=== PATIENT | female | born 1975 | race Caucasian/White ===

== ENCOUNTER → 2017-05-20 15:02 | Outpatient (CLI) | payer MEDICAID, SELFPAY ==
[2017-05-20 16:24] LABS: Hematocrit 38.8 % (37-47); Hemoglobin 12.5 g/dl (12.0-15.0); Mean Corp Hgb Conc 32.2 g/gl (32-36); Mean Corpuscular Hgb 26.7 pg (27.0-32.0); Mean Corpuscular Volume 82.9 fL (81-99); Mean Platelet Vol. 9.9 fl (6.2-12.0); Platelet Count 329 K/mm3 (150-450); RBC Distribution Width CV 14.2 % (11.6-14.6); Red Blood Count 4.68 M/mm3 (4.2-5.4); White Blood Count 11.4 K/mm3 (4.4-11.0)
[2017-05-20 16:35] LABS: Scan Indicated on CBC? Y/N NO
[2017-05-20 16:42] LABS: ALB/GLOB Ratio 0.7 RATIO (0.9-2.4); AST(SGOT) 15 U/L (15-37); Alanine Aminotransfer ALT/SGPT 40 U/L (13-56); Albumin, Serum 3.5 g/dL (3.2-5.0); Alkaline Phosphatase 113 U/L (45-117); Anion Gap 10 (5-15); BUN 13 mg/dL (7-18); Calcium,Total 8.3 mg/dL (8.5-10.1); Chloride 106 mmol/L (98-107); Creatinine, Serum 0.87 mg/dL (0.55-1.02); EST Glomerular Filtration Rate 77 mL/min (>60); Est Glom Filt Rate - Afr Amer 93 mL/min (>60); Follicle Stimulating Hormone 1.8 mIU/mL; Globulin 4.7 g/dL (2.2-4.2); Glucose 88 mg/dL (74-106); Potassium 3.4 mmol/L (3.5-5.1); Protein, Total 8.2 g/dL (6.4-8.2); Sodium Level 139 mmol/L (136-145)
[2017-05-21 08:54] LABS: Vitamin D,25 Hydroxy 19.6 ng/mL (29.95-100.01)
== END ==
PROVIDERS: Visit Provider Obstetrics & Gynecology
DX: N92.0 Excessive and frequent menstruation with regular cycle (principal)
CPT/HCPCS: 36415; 80053; 82306; 83001; 85027

== ENCOUNTER → 2017-05-27 15:53 | Outpatient (CLI) | payer MEDICAID, SELFPAY ==
[2017-06-01 06:20] LABS: HPV Reflexed? NOT INDICATED
== END ==
PROVIDERS: Visit Provider Obstetrics & Gynecology
DX: Z12.4 Encounter for screening for malignant neoplasm of cervix (principal); Z12.72 Encounter for screening for malignant neoplasm of vagina
CPT/HCPCS: 88175; G0145

== ENCOUNTER → 2017-06-20 11:56 | Outpatient (CLI) | payer MEDICAID, SELFPAY ==
--- NOTE | 2017-06-20 11:58 | BI_ITS ---
MAMMOGRAPHY - BILATERAL SCREENING REASON FOR EXAM: Female, 42 years old. Routine annual screening examination. PERTINENT HISTORY: Non-contributory. TECHNIQUE: Digital bilateral breast jason (3D mammographic acquisition) in the CC and MLO projections. 2-D mediolateral oblique (MLO) and craniocaudad (CC) views of both breasts were obtained. CAD: Full Field Digital Mammography with Computer Added Detection was performed. COMPARISON: No comparison mammograms available at this time. If any prior films become available, an addendum to this report can be generated. FINDINGS: Breast Composition: The breasts are heterogeneously dense, which may obscure small masses. There are no dominant masses or suspicious calcifications. Multiple benign appearing bilateral axillary lymph nodes. No other significant abnormalities are identified. BI/SCREENING MAMM (CAD), BILAT IMPRESSION: Negative screening mammogram. Yearly followup mammogram recommended. (A) ASSESSMENT CATEGORY: BIRADS Category 2: Benign. A letter regarding these results will be sent to the patient by the facility within 30 days. Approximately 10% of breast cancers are not detected by mammography. A normal mammogram should not delay biopsy of a clinically suspicious abnormality. [id number] Electronically Signed: Natanael Morris MD at 13:04 EDT Tel [phone], Service support ,
== END ==
PROVIDERS: Visit Provider Obstetrics & Gynecology
DX: Z12.31 Encounter for screening mammogram for malignant neoplasm of breast (principal)
CPT/HCPCS: 77063; 77067

== ENCOUNTER 2017-07-06 09:48 | Emergency (ER) | payer MEDICAID, SELFPAY ==
[2017-07-06 09:49] VITALS: BP 145/83; PULSE 86; RESP 16; TEMP 36.3; O2SAT 98; BMI 35.8
--- NOTE | 2017-07-06 10:01 | CT_ITS ---
STUDY: CT ABDOMEN AND PELVIS WITHOUT CONTRAST REASON FOR EXAM: Female, 42 years old. History of stent placement. Pain and discomfort. RADIATION DOSAGE (If Supplied By Facility): CTDIvol = ( 21.99 ) mGy, DLP = ( 1120.53 ) mGycm TECHNIQUE: Transaxial images were obtained from the dome of the diaphragm to the symphysis pubis without oral contrast, and without intravenous contrast. Sagittal and coronal images were reconstructed. Individualized dose optimization techniques were used for this CT. COMPARISON: None. FINDINGS: The visualized portions of the lung bases demonstrate mild atelectatic changes. The visualized portions of the heart are within normal limits. The liver is mildly enlarged. There is diffuse fatty infiltration of the liver. The patient is status post cholecystectomy. Normal spleen. Normal pancreas. Normal bilateral adrenal glands. There are few small nonobstructing stones in the upper pole of the right kidney measuring about 2 mm. There is an 11 x 9 mm nonobstructing stone in the lower pole of the left kidney. There is a left-sided double J stent catheter with the proximal tip in the left renal pelvis and the distal tip in the bladder. There is no demonstrated definite ureteral stone. There is mild stranding along the course of the left ureter. There is mild left hydronephrosis. Normal visualized stomach. Normal small intestine. There is fecal retention. The descending colon is suboptimally distended. There is no evidence of acute diverticulitis. The appendix is visualized and appears normal. Normal abdominal aorta. Normal inferior vena cava. Normal retroperitoneum. The urinary bladder is not well-distended. There is a very small umbilical hernia containing fat. Normal osseous structures. CT/Abdomen/Pelvis without Cont IMPRESSION: Hepatomegaly. Fatty infiltration of the liver. Bilateral nonobstructing renal stones larger on the left side. Left double J stent catheter in place. Mild left hydronephrosis and stranding along the course of the left ureter. No definite ureteral stone is seen. Mild left hydronephrosis. Otherwise no demonstrated acute process. Electronically Signed: John Funes MD at 11:46 EDT Tel , Service support ,
[2017-07-06 10:09] LABS: Bacteria 0 SEEN /hpf (None Seen); Mucous, Urine 0 SEEN /hpf (<or=2+)
[2017-07-06 10:17] LABS: Color, Urine Brown (Yellow); Glucose, Dipstick Normal (Normal); Ketone-Dipstick Negative (Negative); Leukocyte Esterase-Dipstick 100 /ul (Negative); Nitrite-Dipstick Positive (Negative); Occult Blood-Urine 250 /ul (Negative); Protein-Dipstick 500 mg/dl (Negative); Specific Gravity, Urine 1.025 (1.002-1.030); Urine Bilirubin Dipstick Negative (Negative); Urine Clarity Cloudy (Clear); Urine Urobilinogen Normal (Normal)
[2017-07-06 10:17] LABS: Absolute Lymphocyte Count 3.09 X10^3/ul (0.83-4.51); Absolute Neutrophil Count 6.8 X10^3/uL (2.0-7.7); Basophil# 0.04 X10^3/uL; Basophil% 0.3 % (0-1); Eosinophil# 1.01 X10^3/uL; Eosinophils% 8.6 % (0-5); Hematocrit 40.2 % (37-47); Hemoglobin 13.2 g/dl (12.0-15.0); Lymphocyte # 3.09 X10^3/ul (4.0); Lymphocyte % 26.3 % (19-41); Mean Corp Hgb Conc 32.8 g/gl (32-36); Mean Corpuscular Volume 82.2 fL (81-99); Mean Platelet Vol. 9.4 fl (6.2-12.0); Monocyte# 0.76 X10^3/uL; Monocyte% 6.5 % (0-10); Neutrophil # 6.81 X10^3/uL (2.7-7.7); Neutrophil % 58.1 % (47-70); Platelet Count 402 K/mm3 (150-450); RBC Distribution Width CV 14.3 % (11.6-14.6); RBC Distribution Width SD 42.8 fl (35.1-43.9); Red Blood Count 4.89 M/mm3 (4.2-5.4); White Blood Count 11.7 K/mm3 (4.4-11.0)
[2017-07-06 10:18] LABS: POSITIVE COUNT NO; POSITIVE DIFFERENTIAL NO; POSITIVE MORPHOLOGY NO
[2017-07-06] MEDS: Ketorolac 30 MG/ML Syringe IV (10:19)
[2017-07-06] MEDS: 0.9% Normal Saline 1,000 ML 125 ML IV (10:19)
[2017-07-06] MEDS: Ondansetron 4 MG/2 ML Vial IV (10:20)
[2017-07-06] MEDS: HYDROmorphone 1 MG/ML Syringe IV ×2 (10:21→11:31)
[2017-07-06 10:31] LABS: Red Blood Cells-Urine > 100 SEEN /hpf (0-5); Squamous Epithelial Cells - UA 0-5 SEEN /hpf (5-10); White Blood Cells 10-25 SEEN /hpf (0-5)
[2017-07-06 10:32] LABS: Anion Gap 8 (5-15); BUN 15 mg/dL (7-18); BUN/Creat Ratio 15.2 RATIO (10-20); Calcium,Total 9.3 mg/dL (8.5-10.1); Chloride 108 mmol/L (98-107); Creatinine, Serum 0.98 mg/dL (0.55-1.02); EST Glomerular Filtration Rate 66 mL/min (>60); Est Glom Filt Rate - Afr Amer 80 mL/min (>60); Estimated Creatinine Clearance 65.89 ml/min; Glucose 97 mg/dL (74-106); Potassium 4.1 mmol/L (3.5-5.1); Sodium Level 140 mmol/L (136-145)
[2017-07-06] MEDS: Ceftriaxone 1 GM/50 mL Premix x1 IV (11:31)
[2017-07-06 11:33] VITALS: BP 110/57; PULSE 66; RESP 18; O2SAT 98
--- NOTE | 2017-07-06 12:05 | ED.VISSUMM ---
- ER Visit Summary Date of Service: 07/06/17 Chief Complaint: [Left flank pain] History of Present Illness: The patient is a 42 F [presents to the emergency department with pain in her left flank that started about a week ago. Patient was seen at [facility] by her urologist and had a stent placed to the left kidney for a renal stone and measured about 11 mm. Patient was sent home with Tylenol with codeine for pain as well as Cipro. Patient continues to have severe pain. Patient's had some nausea but no vomiting. Patient had no fever. Patient states that she cannot tolerate the pain any longer.] Physical Examination: [HEENT-PERRLA, EOMI. Cranial nerves II through XII grossly intact. TMs clear. Mucous membranes moist. No adenopathy. Cardiovascular-regular rate and rhythm without murmur or ectopy Lungs-clear to auscultation, chest wall stable without crepitus or subcu emphysema Abdomen-normoactive bowel sounds, soft. Mild diffuse tenderness palpation over the left abdomen without rebound, rigidity, or perineal signs. Patient has CVA tenderness on the left. Extremities-intact ?4, normal range of motion, normal pulses, atraumatic] Test Results: [CBC with differential showed a white count of 11.7, hemoglobin 13, hematocrit 40, platelets 402. Chemistries unremarkable. Urinalysis was positive for nitrites as well as 10-25 WBCs and greater than [address] flank showed 11 mm x 9 mm left renal stone with some stranding along the course of the left ureter and some hydronephrosis.] Emergency Department Course and Treatment: [Patient was medicated with Dilaudid and Zofran. Patient had to be remedicated a second time for pain.] Treatment Plan: [Case was discussed with [facility] and patient will be transferred to their facility where patient initially began her treatment and where her urologist practices. We do not have urology coverage at [place] today.] Disposition: [Transfer to [facility] in [place].] Impression: [Intractable left flank pain Left renal stone UTI] This note was generated with [employer] dictation software. It may contain incorrect words, spelling, and punctuation that were not noted in review of the chart prior to signing ED Disposition - Plan for ED Patient: Chief Complaint: Complaint Referrals: Care Physician,No Primary [Primary Care Provider] -
[2017-07-06 12:07] VITALS: BP 112/61; PULSE 70; RESP 18; O2SAT 97
--- NOTE | 2017-07-06 12:08 | ED.DCSUM_ITS ---
- ER Visit Summary Date of Service: 07/06/17 Chief Complaint: [Left flank pain] History of Present Illness: The patient is a 42 F [presents to the emergency department with pain in her left flank that started about a week ago. Patient was seen at [facility] by her urologist and had a stent placed to the left kidney for a renal stone and measured about 11 mm. Patient was sent home with Tylenol with codeine for pain as well as Cipro. Patient continues to have severe pain. Patient's had some nausea but no vomiting. Patient had no fever. Patient states that she cannot tolerate the pain any longer.] Physical Examination: [HEENT-PERRLA, EOMI. Cranial nerves II through XII grossly intact. TMs clear. Mucous membranes moist. No adenopathy. Cardiovascular-regular rate and rhythm without murmur or ectopy Lungs-clear to auscultation, chest wall stable without crepitus or subcu emphysema Abdomen-normoactive bowel sounds, soft. Mild diffuse tenderness palpation over the left abdomen without rebound, rigidity, or perineal signs. Patient has CVA tenderness on the left. Extremities-intact ?4, normal range of motion, normal pulses, atraumatic] Test Results: [CBC with differential showed a white count of 11.7, hemoglobin 13 , hematocrit 40, platelets 402. Chemistries unremarkable. Urinalysis was positive for nitrites as well as 10-25 WBCs and greater than [address] flank showed 11 mm x 9 mm left renal stone with some stranding along the course of the left ureter and some hydronephrosis.] Emergency Department Course and Treatment: [Patient was medicated with Dilaudid and Zofran. Patient had to be remedicated a second time for pain.] Treatment Plan: [Case was discussed with [facility] and patient will be transferred to their facility where patient initially began her treatment and where her urologist practices. We do not have urology coverage at [place] today.] Disposition: [Transfer to [facility] in [place].] Impression: [Intractable left flank pain Left renal stone UTI] This note was generated with [employer] dictation software. It may contain incorrect words, spelling, and punctuation that were not noted in review of the chart prior to signing ED Disposition - Plan for ED Patient: Chief Complaint: Complaint Referrals: Care Physician,No Primary [Primary Care Provider] -
== END 2017-07-06 13:23 | disposition short-term general hospital (02) ==
PROVIDERS: Emergency Provider Emergency Medicine
DX: N13.2 Hydronephrosis with renal and ureteral calculous obstruction (principal); N39.0 Urinary tract infection, site not specified; Z79.899 Other long term (current) drug therapy; Z87.442 Personal history of urinary calculi
CPT/HCPCS: 74176; 80048; 81001; 85025; 87086; 87088; 96361; 96365; 96375; 96376; 99284

== ENCOUNTER 2017-08-20 05:51 | Day surgery (SDC) | payer MEDICAID, SELFPAY ==
[2017-08-15 11:37] LABS: Hematocrit 38.2 % (37-47); Hemoglobin 12.5 g/dl (12.0-15.0); Mean Corp Hgb Conc 32.7 g/gl (32-36); Mean Corpuscular Hgb 27.1 pg (27.0-32.0); Mean Corpuscular Volume 82.9 fL (81-99); Mean Platelet Vol. 9.9 fl (6.2-12.0); Platelet Count 322 K/mm3 (150-450); RBC Distribution Width CV 14.5 % (11.6-14.6); RBC Distribution Width SD 43.5 fl (35.1-43.9); Red Blood Count 4.61 M/mm3 (4.2-5.4); White Blood Count 8.5 K/mm3 (4.4-11.0)
[2017-08-15 11:40] LABS: Scan Indicated on CBC? Y/N NO
[2017-08-15 11:49] LABS: Pregnancy, Serum, hCG Quali. NEGATIVE Negative (0-9 Nonpreg)
[2017-08-15 11:56] LABS: International Normalized Ratio 1.1; Prothrombin Time (Protime)PT. 14.1 SECONDS (11.7-14.9)
[2017-08-15 11:57] LABS: Partial Thromboplast Time 26.7 Seconds (24.1-36.2)
--- NOTE | 2017-08-20 | EMB_PTH ---
PATIENT: LOUISE JAMA LOC: [facility] U#:[id number] AGE/SX: 42/F ROOM: RE08/20/[address]: Dr. Yefri Kilgore MD : 1975 BED: DIS: 08/20/2017 SPEC #: [id number] RECD: 08/20/17 11:53 STATUS: PETER MIRIAN #: [id number] MACHELLE: 08/20/17 00:[address]: Yefri Kilgore DEPT: SURGICAL PATHOLOGY RECD BY: Stuart Alberto ENTERED: 08/21/17 11:54 SP TYPE: ENDOM BX/C AIDA DR: No Primary Care Phys Tissues: Endometrium, NOS Procedures: Surgery Specimen Level IV HEADER OPERATION: Hysteroscopy, D & C, Radha PRE-OP DIAGNOSIS: Menorrhagia TISSUE SUBMITTED: Endometrial curettings MICROSCOPIC DIAGNOSIS Endometrial curettings: Scant fragments of secretory endometrium. A few fragments of endometrium suggestive of polyp with inactive endometrium and cystic changes. Fragments of benign endocervical mucosa. See comment. NICHOLAS:sherman 08/22/17 COMMENT The specimen predominantly consists of endocervical mucosa. Clinical correlation and appropriate follow up are necessary. MICROSCOPIC DESCRIPTION Slides are reviewed. GROSS DESCRIPTION Received in fixative is one container labeled with the patient's name and designated endometrial curettings. The specimen consists of multiple irregular fragments of pink hemorrhagic soft tissue that in aggregate measure 3 x 2.5 x 0.3 cm. The specimen is totally submitted in one cassette. / NICHOLAS:sherman 08/20/17 TC:5 CPT: 88196
--- NOTE | 2017-08-20 05:51 | DT_ITS ---
This patient was seen during an EMR downtime August 18, 2017 - August 25, 2017. This patient may have a combination of paper and electronic documentation or all paper documentation. All documentation is viewable within the e-chart portion of [facility] for each patient visit.
[2017-08-23 11:12] LABS: Internal QC Validated? YES +Cl - CLEAR BKGD; Pregnancy, Urine Negative Negative
== END 2017-08-20 09:30 | disposition home or self-care (01) ==
LOC: SDC 08-21 11:17
PROVIDERS: Visit Provider Obstetrics & Gynecology
PROC: 0U5B8ZZ Destruction of Endometrium, Via Natural or Artificial Opening Endoscopic (ICD-10-PCS; CPT 58558; principal; 2017-08-20 07:15)
DX: N92.0 Excessive and frequent menstruation with regular cycle (principal); N94.6 Dysmenorrhea, unspecified; Z87.442 Personal history of urinary calculi
CPT/HCPCS: 00952; 58558; 58563; 36415; 81025; 84703; 85027; 85610; 85730; 86850; 86900; 88305; J7120

== ENCOUNTER 2017-11-28 19:34 | Observation (INO) | payer MEDICAID, SELFPAY ==
[2017-11-28 19:35] VITALS: BP 131/98; PULSE 83; RESP 22; TEMP 36.9; O2SAT 100; BMI 36.6
--- NOTE | 2017-11-28 20:06 | CT_ITS ---
STUDY: CT ABDOMEN AND PELVIS WITHOUT CONTRAST REASON FOR EXAM: Female, 42 years old. Left flank pain RADIATION DOSAGE (If Supplied By Facility): CTDIvol = ( 21.19 ) mGy, DLP = ( 1032.39 ) mGycm TECHNIQUE: Transaxial images were obtained from the dome of the diaphragm to the symphysis pubis without oral contrast, and without intravenous contrast. Sagittal and coronal images were reconstructed. Individualized dose optimization techniques were used for this CT. COMPARISON: Prior study of 07/06/2017 FINDINGS: There are mild fibrotic and/or atelectatic changes of the right middle lobe, stable in the interval. The visualized portions of the heart are within normal limits. There is decreased attenuation of the liver consistent with steatosis. There is mild hepatomegaly. There are surgical clips in the gallbladder fossa consistent with a prior cholecystectomy. Normal spleen. Normal pancreas. Normal bilateral adrenal glands. There is a nonobstructing 3 mm calculus of the right kidney. There is a nonobstructing calculus of the left kidney measuring 5 mm. There is a mild left hydronephrosis. There is an obstructing calculus in the proximal left ureter at the level of the UPJ measuring 5 mm. Normal visualized stomach. Normal small intestine. There is mild diffuse colonic diverticulosis with no evidence of associated diverticulitis. The appendix is visualized and appears normal. Normal abdominal aorta. Normal inferior vena cava. Normal retroperitoneum. Normal urinary bladder. The uterus and adnexal structures are unremarkable. There is a small umbilical hernia containing fat. Normal osseous structures. CT/Abdomen/Pelvis without Cont IMPRESSION: 1. Obstructing calculus of the proximal left ureter at the level of the UPJ measuring 5 mm. There is a mild left hydronephrosis. 2. Additional nonobstructing renal calculi are seen bilaterally. 3. Mild hepatomegaly. Hepatic steatosis. 4. Status post cholecystectomy. 5. Mild colonic diverticulosis with no evidence of associated diverticulitis. 6. Small fat-containing umbilical hernia. Electronically Signed: Oskar Saini MD at 20:48 EDT , Service support ,
--- NOTE | 2017-11-28 20:09 | ED.DCSUM_ITS ---
- ER Visit Summary Date of Service: 11/28/17 Chief Complaint: Left flank pain History of Present Illness: The patient is a 42 F presenting with left flank pain. She states it started suddenly 2 hours ago. She has a history of previous kidney stones and states this feels similar. She denies fever. Her urologist is Dr. Lubin. Denies other complaints. Physical Examination: Vitals are stable. Patient is afebrile. Alert no acute distress. HEENT exam is unremarkable. Neck is supple. Lungs are clear and equal bilaterally. Heart is regular rate and rhythm. Abdomen is soft nontender nondistended. Back: Left CVA tenderness Extremities are unremarkable. Skin is warm and dry. Remainder of exam is unremarkable. Emergency Department Course and Treatment: Patient given morphine, Zofran, Toradol IV. Urinalysis shows 5-10 white cells, 25-50 red blood cells. She continues to have pain and was given Dilaudid, Phenergan IV. CT flank shows obstructing calculus of the proximal left ureter at the level of the UPJ measuring 5 mm. There is a mild left hydronephrosis. Additional nonobstructing renal calculi are seen bilaterally. Patient's pain has improved but she states she is still having significant pain. She does not feel that she can go home. She has been seen at [place] in the past for similar complaints. She prefers to stay at [facility]. Discussed with Dr. Moss for admission. Disposition: Admission Impression: Urolithiasis This note was generated with [employer] dictation software. It may contain incorrect words, spelling, and punctuation that were not noted in review of the chart prior to signing ED Disposition - Plan for ED Patient: Chief Complaint: Flank Pain Referrals: Care Physician,No Primary [Primary Care Provider] -
[2017-11-28] MEDS: Ketorolac 30 MG/ML Syringe IV (20:17)
[2017-11-28] MEDS: Ondansetron 4 MG/2 ML Vial IV (20:17)
[2017-11-28] MEDS: Morphine 4 MG/ML Syringe IV (20:17)
[2017-11-28 20:51] LABS: Squamous Epithelial Cells - UA 0 SEEN /hpf (5-10)
[2017-11-28 20:59] LABS: Color, Urine Yellow (Yellow); Glucose, Dipstick Normal (Normal); Ketone-Dipstick 5 mg/dl (Negative); Leukocyte Esterase-Dipstick 100 /ul (Negative); Nitrite-Dipstick Negative (Negative); Occult Blood-Urine 250 /ul (Negative); Protein-Dipstick 30 mg/dl (Negative); Specific Gravity, Urine 1.025 (1.002-1.030); Urine Bilirubin Dipstick Negative (Negative); Urine Clarity Sl. Cloudy (Clear); Urine Urobilinogen Normal (Normal)
[2017-11-28 21:12] LABS: Bacteria RARE /hpf (None Seen); Mucous, Urine 1+ /hpf (<or=2+); Red Blood Cells-Urine 25-50 SEEN /hpf (0-5); White Blood Cells 5-10 SEEN /hpf (0-5)
[2017-11-28] MEDS: proMETHazine 25 MG/ML Syringe 6.25 MG IV (21:59)
[2017-11-28 22:00] VITALS: BP 118/76; PULSE 81; RESP 19; O2SAT 97
[2017-11-28] MEDS: HYDROmorphone 1 MG/ML Syringe IV (22:00)
[2017-11-28 22:54] LABS: Absolute Lymphocyte Count 4.38 X10^3/ul (0.83-4.51); Absolute Neutrophil Count 7.3 X10^3/uL (2.0-7.7); Basophil# 0.03 X10^3/uL; Basophil% 0.2 % (0-1); Eosinophil# 0.56 X10^3/uL; Eosinophils% 4.2 % (0-5); Hematocrit 38.8 % (37-47); Hemoglobin 12.4 g/dl (12.0-15.0); Lymphocyte # 4.38 X10^3/ul (4.0); Lymphocyte % 32.9 % (19-41); Mean Corpuscular Hgb 26.5 pg (27.0-32.0); Mean Corpuscular Volume 82.9 fL (81-99); Mean Platelet Vol. 9.6 fl (6.2-12.0); Monocyte# 1.04 X10^3/uL; Monocyte% 7.8 % (0-10); Neutrophil % 54.8 % (47-70); POSITIVE COUNT NO; POSITIVE DIFFERENTIAL NO; POSITIVE MORPHOLOGY NO; Platelet Count 346 K/mm3 (150-450); RBC Distribution Width CV 14.5 % (11.6-14.6); RBC Distribution Width SD 43.9 fl (35.1-43.9); Red Blood Count 4.68 M/mm3 (4.2-5.4); White Blood Count 13.3 K/mm3 (4.4-11.0)
[2017-11-28 23:04] LABS: Anion Gap 11 (5-15); BUN 13 mg/dL (7-18); BUN/Creat Ratio 11.9 RATIO (10-20); Calcium,Total 9.3 mg/dL (8.5-10.1); Chloride 106 mmol/L (98-107); Creatinine, Serum 1.09 mg/dL (0.55-1.02); EST Glomerular Filtration Rate 59 mL/min (>60); Est Glom Filt Rate - Afr Amer 71 mL/min (>60); Estimated Creatinine Clearance 59.24 ml/min; Glucose 114 mg/dL (74-106); Potassium 3.5 mmol/L (3.5-5.1); Sodium Level 141 mmol/L (136-145)
[2017-11-29] VITALS (14 sets, daily range): BP systolic 99–156; BP diastolic 55–106; PULSE 63–97; RESP 15–18; TEMP 36.1–36.9; O2SAT 94–100; BMI 36.6
[2017-11-29] MEDS: Dext 5%-0.45% NS 1,000 ML 120 ML IV ×3 (01:39→22:12)
[2017-11-29] MEDS: Ketorolac 30 MG/ML Syringe IV (01:53)
[2017-11-29] MEDS: 0.9% NaCl Peripheral Flush Adult/Peds IV ×3 (03:12→23:55)
[2017-11-29] MEDS: Morphine 2 MG/ML Syringe IV ×5 (03:12→23:54)
[2017-11-29] MEDS: Tamsulosin HCl 0.4 MG Capsule PO (04:19)
[2017-11-29 06:23] LABS: Internal QC Validated? YES +Cl - CLEAR BKGD
[2017-11-29] MEDS: Ondansetron 4 MG/2 ML Vial IV (06:23)
[2017-11-29 06:25] LABS: Pregnancy, Urine Negative Negative
--- NOTE | 2017-11-29 09:43 | PCM.HP.BLA ---
Problem List (1) Renal calculus, left Status: Acute (2) Back pain Status: Acute History and Physical Date of Admission: 11/28/17 The patient is a 42-year-old female with a past medical history significant for nephrolithiasis. She has had cystoscopy, ureteral stent insertion and shockwave lithotripsy in the past. She developed nausea vomiting and acute onset left flank pain yesterday and presented to the emergency room for control of symptoms. She has had no fever, no signs of urinary tract infection. In the emergency room she was found to have a proximal left ureteral calculus. She reports that this is likely secondary to her extracorporal shockwave lithotripsy. He desires to proceed with surgical intervention but has had horrible experiences with stents in the past and would prefer surgical intervention with minimal stent time. Past medical history: Nephrolithiasis Past surgical history: Cystoscopy, ureteral stent insertion, extracorporal shockwave lithotripsy No known drug allergies No long-term medications Vital signs: Afebrile, vital signs are stable please see chart for details. Patient is alert and oriented ?3. She is in mild distress secondary to nausea, pain. She has a washcloth to her forehead. She is normocephalic, atraumatic. Mucosal membranes are dry. Neck is supple and trachea is midline. She has normal air movement and her heart rhythm is normal. Abdomen is soft nontender nondistended. There is CVA tenderness to the left side. She has normal range of motion's of her extremities and SCDs are in place. There is no Connolly catheter. Genital and rectal examinations deferred. Auditory studies reviewed there is no evidence of urinary tract infection on her UA. There is a proximal left ureteral calculus on her CT scan. Assessment and plan: 42-year-old female with acute left proximal ureteral calculus with uncontrolled pain, nausea and vomiting Proceed with surgical intervention with cystoscopy, left ureteroscopy, laser lithotripsy and left ureteral stent placement. Risks and benefits discussed including the risk of anesthesia, bleeding, infection, injury including to the ureter and kidney. The patient agrees with this plan and understands the risks.
--- NOTE | 2017-11-29 10:30 | NURSING ---
PT TO OR VIA BED.
--- NOTE | 2017-11-29 12:10 | OP.PN_ITS ---
Problem List (1) Renal calculus, left Status: Acute (2) Back pain Status: Acute Immediate Post-Op Note Date of Procedure: 11/29/17 Primary Surgeon/Physician: Zari Moss MD forensic manager: Zari Moss Pre-Operative Diagnosis: left renal calculus, left ureteral calculus Post-Operative Diagnosis: same Surgery/Procedure Performed:: cystoscopy, left ureteroscopy, laser lithotripsy, left ureteral stent insertion. Description of Surgical Findings:: as seen on CT, proximal left ureteral stone and left renal stone. laser lithotripsy into small fragments within the renal pelvis. left ureteral stent inserted with string left in place. Estimated Blood Loss: 2cc Specimen's removed: none Type of Anesthesia:: General Special Medications: ancef - Admit VTE Documentation VTE Present on Admission: Yes VTE Mechan Device Prophylaxis: SCD's VTE Pharm Prophylaxis ordered?: No Reason prophylaxis not ordered:: Treatment Not Indicated
[2017-11-30 02:19] VITALS: BP 106/66; PULSE 86; RESP 16; TEMP 36.7; O2SAT 95
[2017-11-30] MEDS: 0.9% NaCl Peripheral Flush Adult/Peds IV ×2 (06:22→11:39)
[2017-11-30] MEDS: Morphine 2 MG/ML Syringe IV (06:22)
[2017-11-30] MEDS: Dext 5%-0.45% NS 1,000 ML 120 ML IV (06:27)
[2017-11-30] MEDS: HYDROcodone Bitartrate/Apap 5/325 Tablet PO (07:53)
[2017-11-30 08:20] VITALS: BP 121/69; PULSE 97; RESP 16; TEMP 37.3; O2SAT 95
[2017-11-30] MEDS: Ketorolac 30 MG/ML Syringe IV ×2 (11:38→20:47)
--- NOTE | 2017-11-30 12:23 | PCM.PN.GU ---
Physical Exam Subjective: Sitting up in bed. Stent out this morning. Feeling better but still complaining of left flank pain increased with voiding. Having headaches from the pain meds. Would like to go home but fearful of pain at home. - Physical Exam Vital Signs Temp 99.2 F H 11/30/17 08:20 Pulse 97 11/30/17 08:20 Resp 16 11/30/17 08:20 BP 121/69 H 11/30/17 08:20 Pulse Ox 95 11/30/17 08:20 Intake & Output 11/28/17 11/29/17 11/30/17 23:59 23:59 23:59 Intake Total 2225 / 2225 2465 / 2465 Output Total 400 / 400 1050 / 1050 Balance 1825 / 1825 1415 / 1415 Weight: 96.7 kg Intake: Oral 250 / 250 360 / 360 IV fluid/meds 1974 2105 / 2105 IV #1 400 / 400 Output: Urine 400 / 400 1050 / 1050 Other: Number of Voids 3 General: Alert, Oriented x3 HEENT: Atraumatic, Normocephalic Oral: Moist Mucosa Neck: Trachea Midline Lungs: Normal air movement Abdomen: Soft, Non Tender, Non-Distended, - - left CVA tenderness to palpation Rectal: Exam deferred Extremities: No Calf Tenderness Skin: No rashes Musculoskeletal: No Muscle Wasting Neurological: Cranial nerves II-XII grossly intact, Neuro grossly intact Psych/Mental Status: Normal Affect Medical Necessity - Tobacco Use Smoking Status: Never smoker Assessment/Plan All Active Problems Renal calculus, left (Acute) Back pain (Acute) will heplock IV, change to tylenol with codeine. oral intake, ambulate if still with significant pain this evening, will recheck CT flank. if feeling better, home today with follow up in the office for further stone management.
--- NOTE | 2017-11-30 12:35 | DCINST_ITS ---
Discharge Diet: No Restrictions Discharge Activity: May not drive while taking narcotic pain medications., May Shower, May Take a Tub Bath May resume sexual activity in: No Restrictions Call your doctor if you observe: Fever of 101 or Higher, Inability to urinate, Inability to have a bowel movement, Shortness of breath, Chest pain, Calf discomfort, Uncontrolled pain Allergies/Adverse Reactions: Allergies No Known Allergies Allergy (Verified 11/29/17 00:24) Medications to take at Discharge Acetaminophen/Codeine #3 [Tylenol #3 Tablet] 2 tab PO Q4H PRN PRN 7 Days #30 tab 11/30/17 Cephalexin [Keflex] 500 mg PO Q12 3 Days #6 cap 11/30/17 Ondansetron [Zofran] 8 mg PO Q8H PRN PRN 7 Days #20 tab 11/30/17 Phenazopyridine HCl [Pyridium] 200 mg PO TID PRN PRN 7 Days #30 tab 11/30/17 The following prescriptions were given: Acetaminophen/Codeine #3 [Tylenol #3 Tablet] 2 tab PO Q4H PRN PRN 7 Days #30 tab PRN Reason: Moderate Pain (4-5/10) Ondansetron [Zofran] 8 mg PO Q8H PRN PRN 7 Days #20 tab PRN Reason: Nausea Cephalexin [Keflex] 500 mg PO Q12 3 Days #6 cap Phenazopyridine HCl [Pyridium] 200 mg PO TID PRN PRN 7 Days #30 tab PRN Reason: Bladder Spasms Primary Care Physician: Care Physician,No Primary [Primary Care Provider] - Test Results: Test results from this visit will be discussed in further detail at your follow- up appointment, if applicable. Please Follow Up With: Zari Moss MD When: 2 weeks, call for appt.
--- NOTE | 2017-11-30 12:35 | PCM.OPRPT ---
Problem List (1) Renal calculus, left Status: Acute (2) Back pain Status: Acute Report of Operation Date of Procedure: 11/29/17 Pre-Operative Diagnosis: left renal calculus, left ureteral calculus Post-Operative Diagnosis: same Surgery/Procedure Performed:: cystoscopy, left ureteroscopy, laser lithotripsy, left ureteral stent insertion. Description of Surgical Findings:: as seen on CT, proximal left ureteral stone and left renal stone. laser lithotripsy into small fragments within the renal pelvis. left ureteral stent inserted with string left in place. optical effects line up person: Zari Moss Type of Anesthesia:: General Special Medications: ancef Specimen's removed: none Estimated Blood Loss (mL): 2cc Description of Procedure: The patient is a 42-year-old female presented to the emergency room and found to have left proximal ureteral/renal calculi. She has recently undergone extracorporal shockwave lithotripsy of the stone in the left kidney. She has had significant difficulty with pain control when she has had stents in in the past. After discussing the risk benefits and alternatives she agreed to proceed with treatment of the left renal stones and string with stent that can be pulled out without cystoscopy. All risks benefits and alternatives were discussed. The patient was taken operating room placed on the operating room table. Anesthesia monitored the head neck, airway, vital signs, IV access during the case. Once anesthesia was a probably administered the patient was placed into dorsal lithotomy position was prepped and draped in usual sterile fashion. A cystourethroscopy was then performed and there were no lesions within the urinary bladder including papillary gross, ulcerations, erythema or foreign body. At this time the left ureteral orifice was intubated with a 0.035 Glidewire x2. Flexible ureteroscopy over 1 of the wires was then performed to the level of the stone which is easily identified. At this time laser lithotripsy ensued and the stone was broken into multiple pieces within the renal pelvis. The second stone was located in a separate calyx and was also fragmented into multiple small pieces with the laser. At this time an attempt was made at stone basket extraction and I was unable to grasp any of the small fragments. Using the safety wire and the cystoscope, a 6 Maori 24 cm double-J stent was inserted with good curling in the renal pelvis as well as the urinary bladder. This string was left in situ and was taped to the patient's right inner thigh. The patient was then awakened and taken to recovery room in good condition. There were no complications during this procedure. Grafts/Implants Used: 6x24 ureteral stent with string - Complications none - Admit VTE Documentation VTE Present on Admission: Yes VTE Mechan Device Prophylaxis: SCD's VTE Pharm Prophylaxis ordered?: No Reason prophylaxis not ordered:: Treatment Not Indicated
[2017-11-30 13:56] VITALS: BP 98/54; PULSE 75; RESP 16; TEMP 36.9; O2SAT 94
[2017-11-30] MEDS: Acetaminophen/Codeine #3 Tablet 2 TABLET PO ×2 (14:04→18:07)
[2017-11-30 20:37] VITALS: BP 117/65; PULSE 75; RESP 16; TEMP 36.5; O2SAT 97
[2017-12-01] MEDS: Acetaminophen/Codeine #3 Tablet 2 TABLET PO ×2 (00:20→04:52)
[2017-12-01 03:10] VITALS: BP 104/62; PULSE 63; RESP 16; TEMP 36.8; O2SAT 95
[2017-12-01 08:16] VITALS: BP 110/63; PULSE 67; RESP 18; TEMP 36.8; O2SAT 97
[2017-12-01 10:09] VITALS: PULSE 60
== END 2017-12-01 10:49 | disposition home or self-care (01) ==
LOC: ED 20:37 → MS3 11-29 01:29
PROVIDERS: Anesthesiology; Admitting Provider Urology; Emergency Provider Emergency Medicine; Visit Provider Urology
PROC: 0TJ98ZZ Inspection of Ureter, Via Natural or Artificial Opening Endoscopic (ICD-10-PCS; CPT 52352; principal; 2017-11-29 11:00)
DX: N13.2 Hydronephrosis with renal and ureteral calculous obstruction (principal); Z87.442 Personal history of urinary calculi
CPT/HCPCS: 00918; 52356; 74176; 76000; 80048; 81001; 81025; 85025; 96361; 96374; 96375; 96376; 99218; 99283; A4216; C1769; C2617; G0378; J2405; J7799

== ENCOUNTER → 2017-12-18 09:20 | Outpatient (CLI) | payer MEDICAID, SELFPAY ==
--- NOTE | 2017-12-18 09:22 | RAD_ITS ---
STUDY: X-RAY - ABDOMEN/PELVIS REASON FOR EXAM: Female, 42 years old. Renal calculi. TECHNIQUE: 2 frontal images of the abdomen. COMPARISON: None. FINDINGS: Normal visualized lung bases. There is an unremarkable bowel gas pattern. There is no demonstrated free abdominal air. Within the region of the upper pole the right kidney there is a 3.2 mm calcific density. There are calcified foci within the expected region of the upper pole and lower pole of the left kidney the largest measuring up to 5.2 mm. There are calcified phleboliths in the pelvis. Normal visualized osseous structures. RAD/Abdomen Single View IMPRESSION: Bilateral renal calculi measuring up to 5.2 mm within the left kidney. Electronically Signed: Renée Nava MD at 16:55 EDT Tel , Service support ,
== END ==
PROVIDERS: Referring Provider Urology; Visit Provider Urology
DX: N20.0 Calculus of kidney (principal)
CPT/HCPCS: 74018

== ENCOUNTER → 2018-01-28 13:32 | Outpatient (CLI) | payer MEDICAID, SELFPAY ==
[2018-01-28 14:38] LABS: Vitamin D,25 Hydroxy 22.6 ng/mL (29.95-100.01)
== END ==
PROVIDERS: Visit Provider Obstetrics & Gynecology
DX: E55.9 Vitamin D deficiency, unspecified (principal)
CPT/HCPCS: 36415; 82306

== ENCOUNTER 2018-02-25 08:27 | Inpatient (IN) | payer MEDICAID, SELFPAY ==
[2018-02-19 12:46] LABS: Hematocrit 38.4 % (37-47); Hemoglobin 12.4 g/dl (12.0-15.0); Mean Corp Hgb Conc 32.3 g/gl (32-36); Mean Corpuscular Hgb 27.1 pg (27.0-32.0); Mean Corpuscular Volume 83.8 fL (81-99); Platelet Count 363 K/mm3 (150-450); RBC Distribution Width CV 14.4 % (11.6-14.6); RBC Distribution Width SD 43.7 fl (35.1-43.9); Red Blood Count 4.58 M/mm3 (4.2-5.4); Scan Indicated on CBC? Y/N NO; White Blood Count 9.9 K/mm3 (4.4-11.0)
[2018-02-19 12:56] LABS: Partial Thromboplast Time 29.1 Seconds (24.1-36.2); Prothrombin Time (Protime)PT. 13.5 SECONDS (11.7-14.9)
[2018-02-19 13:22] LABS: Pregnancy, Serum, hCG Quali. NEGATIVE Negative (0-9 Nonpreg)
[2018-02-19 13:23] LABS: Cholesterol 269 mg/dL (200); High Density Lipoprotein 60 mg/dL; Triglycerides 166 mg/dL; Very Low Density Lipoprotein 33 mg/dL (5-40)
[2018-02-25] VITALS (18 sets, daily range): BP systolic 83–114; BP diastolic 50–70; PULSE 62–94; RESP 16–20; TEMP 36.4–36.8; O2SAT 92–99; BMI 37.6
[2018-02-25 08:54] LABS: Internal QC Validated? YES +Cl - CLEAR BKGD; Pregnancy, Urine Negative Negative
[2018-02-25] MEDS: Acetaminophen 500 MG Tablet 1000 MG PO (09:26)
[2018-02-25] MEDS: Celecoxib 200 MG Capsule 400 MG PO (09:27)
[2018-02-25] MEDS: Gabapentin 600 MG Tablet PO (09:27)
[2018-02-25 09:36] LABS: Bedside Glucose 59 mg/dL (70-110)
--- NOTE | 2018-02-25 09:38 | OP.PCM_ITS ---
Report of Operation Date of Procedure: 02/25/18 Pre-Operative Diagnosis: Menorrhagia, Dysmenorrhea Post-Operative Diagnosis: Same Surgery/Procedure Performed:: Total Abdominal Hysterectomy, Bilateral Salpingectomy Description of Surgical Findings:: Normal appearing uterus, ovaries. Fallopian tubes normal in appearance s/p ligation in the past. Scarring of bladder to anterior lower uterine segment and cervix. Omental adhesions to the anterior abdominal wall just below umbilicus. twine reeling machine operator: Elizabeth Wan Type of Anesthesia:: General Anesthesiologist: Axel Finney Special Medications: none Specimen's removed: Uterus, cervix, right and left fallopian tubes Drains: guo Estimated Blood Loss (mL): 200cc Fluids Replaced: 1000cc LR Description of Procedure: Francia was taken to the OR with IV running. She was given two grams of Cefotetan intravenously prior to the surgery. The ERAS protocol was used. General anesthesia was introduced without complication. She was then prepped and draped in the supine position. A guo catheter was placed. A Pfannesteil skin incision was then made with the scalpel through the previous scar. The underlying subcutaneous tissue was dissected down to the level of fascia with sharp and blunt dissection. The fascia was then incised horizontally in the midline. This incision was extended bilaterally with the Castillo scissors. The upper portion of the fascial defect was then grasped with two Wendy clamps, elevated and the recuts muscles dissected off with sharp and blunt dissection. In a similar fashion the rectus muscles were dissected off the lower portion of the fascial defect. The rectus muscles were then in the midline, the peritoneum identified and entered sharply. The peritoneal defect was then extended superiorly and inferiorly with sharp dissection. A self retaining retractor was then placed, the bowel packed away with moist laparotomy sponges. The cornua of the uterus was then grasped bilaterally with Wendy clamps for traction. The left round ligament was then grasped suture ligated and cut. The left broad ligament was then dissected anteriorly and posteriorly down to the level of the cervicouterine junction anteriorly and the uterosacral ligament posteriorly. The left fallopian tube was then dissected from the fimbriated end to the cornua. The left uteroovarian ligament was then doubly clamped cut and suture ligated. The broad ligament was dissected posteriorly and anteriorly down to the uterosacral ligament and cervix respectively. The left uterine artery was then clamped, cut and suture ligated. Careful dissection of the bladder adhesions were made to just below the cervicovaginal junction. A bladder flap was made and the bladder blade replaced. The right side was then dissected down to the level of the uterine artery in a similar fashion to the left. The right uterine artery was then clamped, cut and suture ligated. The paracervical tissue on both sides was dissected down to the level of the cervicovaginal junction with careful dissection. Two right angle Zeppelin clamps were then placed across the cervicovaginal junction. The specimen was then amputated. The vagina was then closed with two transfixtion sutures of 0-Vicryl suture. All pedicles were inspected for hemostasis and the pelvis irrigated with 200cc of NS. The peritoneum was closed with 2-0 vicryl. The rectus muscles were r eapproximated with interrupted sutures of 0-Vicryl. The fascia was closed with #1 Vicryl. The subcutaneous tissue was closed with 2-0 Vicryl. The skin was closed with a subcuticular stitch of 4-0 Monocryl suture. Sponge, lap, needle, and instrument counts were correct. She was reversed from anesthesia and taken to the recovery room in stable condition. Grafts/Implants Used: Kieran to subcutaneous layer - Complications none - Admit VTE Documentation VTE Present on Admission: No VTE Mechan Device Prophylaxis: SCD's VTE Pharm Prophylaxis ordered?: No
--- NOTE | 2018-02-25 10:25 | HYST_PTH ---
PATIENT: LOUISE JAMA LOC: [facility] U#:[id number] AGE/SX: 42/F ROOM: [facility] RE02/25/[address]: Dr. Yefri Kilgore MD : [id number] BED: 1 DIS: 02/27/2018 SPEC #: [id number] RECD: 02/25/18 14:39 STATUS: PETER REJulian #: [id number] MACHELLE: 02/25/18 10:[address]: Yefri Kilgore DEPT: SURGICAL PATHOLOGY RECD BY: Jessica Garcia ENTERED: 02/25/18 15:24 SP TYPE: HYSTERECT OTHR DR: No Primary Care Phys Tissues: Uterus, NOS Procedures: Surgery Specimen Level V HEADER OPERATION: ERAS total abdominal hysterectomy with bilateral salpingectomy PRE-OP DIAGNOSIS: Excessive and frequent menstruation with regular cycles TISSUE SUBMITTED: Uterus, bilateral tubes, cervix MICROSCOPIC DIAGNOSIS Uterus, cervix, bilateral fallopian tubes, abdominal hysterectomy and bilateral salpingectomy: Cervix - no pathologic diagnosis. Endometrium - early secretory endometrium. Myometrium - intramural leiomyomas (largest measuring 1.5 cm in greatest dimension). - Focal adenomyosis. Bilateral fallopian tubes - no pathologic diagnosis. SJ:sherman 02/26/18 MICROSCOPIC DESCRIPTION Slides are reviewed. GROSS DESCRIPTION Received in fixative is one container labeled with the patient's name and designated uterus, bilateral tubes and cervix. The specimen consists of a hysterectomy specimen consisting of uterus with cervix and detached bilateral fallopian tubes. The uterus with cervix weighs 197 gm and measures 13 x 8 x 5 cm. The serosal surface is cordova, glistening. The ectocervical mucosa is unremarkable. The external os is circular in contour. The endocervical canal measures 5.5 cm in length and the endocervical mucosa is cordova, glistening and unremarkable. The triangular endometrial cavity measures 6 cm in length and up to 3 cm in width. The endometrium is cordova, glistening, focally congested and without any mass lesion and measures 0.1 cm in thickness. Sections of the uterine wall reveal cordova, nodular masses with the largest mass measuring 1.5 cm in greatest dimension. Sections of these masses reveal cordova whorled cut surfaces without areas of hemorrhage, necrosis or cystic degeneration. Sections of the uterine wall also reveal a few ill-defined nodular masses. The uninvolved uterine wall measures up to 3.5 cm in thickness. The fallopian tubes are not identified as right or left. One of the fallopian tubes measure 2.5 cm in length and 0.5 cm in diameter. Sections do not reveal any mass lesion. The second fallopian tube also measures 2.5 cm in length and 0.8 cm in diameter. Sections do not reveal any mass lesion. Instrument Assembly Supervisor sections are submitted in ten cassettes as follows: 1 - anterior cervix, 2 - posterior cervix, 3 & 4 - anterior uterine wall, 5 & 6 - posterior uterine wall, 7 - ill-defined nodular masses, 8 - nodular masses, 9 & 10 - bilateral fallopian tubes with each cassette containing one fallopian tube. / NICHOLAS:sherman 02/25/18 TC:1 CPT: 11707
[2018-02-25] MEDS: Lidocaine/D5W 2,000 MG/250 ML IV.SOLN 2000 MG (10:34)
[2018-02-25] MEDS: Lactated Ringers 500 ML 999 ML IV (13:20)
[2018-02-25] MEDS: Ketorolac 30 MG/ML Syringe IV ×3 (13:20→23:05)
--- NOTE | 2018-02-25 13:27 | SUR.PHASEI ---
PACU: PATIENT HAS BEEN SOFTLY MOANING SINCE ARRIVAL TO PACU AT 1246. MOANING HAS BECOME PROGRESSIVELY LOUDER AND MORE INSISTANT, YELLING PAIN, FACIAL GRIMACING, DIFFICULT TO CONSOLE. SBP 83-90, ONLY HAD 100 ML U/O IN O.R WITH 200 ML EBL DURING O.R. CASE PER REPORT. PATIENT ON ERAS PROTOCOL. ANESTHESIA DR ANDI MAK AWARE. CALLED DR MOCTEZUMA AT 1312, WHO INSTRUCTS TO GIVE 500 ML IVF BOLUS AT W/O, TORADOL 30 MG, MAY MEDICATE FOR PAIN PER ANESTHESIA PACU ORDERS.
[2018-02-25] MEDS: oxyCODONE 5 MG Tablet PO ×2 (15:22→20:12)
--- NOTE | 2018-02-25 15:44 | SUR.PHASEI ---
STILL WAITING FOR AVAILABLE STAFF TO TRANSPORT PATIENT TO [facility] AFTER ASKED TO DELAY BY INSURANCE ADMINISTRATOR. MEDICATED WITH OXYCODONE AFTER GIVING SNACK, SEE eMAR. MAINTAINING SPO2 AT 98% ON 4 L/MIN NASAL CANNULA.
[2018-02-25] MEDS: Ondansetron 4 MG/2 ML Vial IV ×2 (16:47→20:13)
[2018-02-25] MEDS: 0.9% NaCl Peripheral Flush Adult/Peds IV (17:42)
[2018-02-25] MEDS: Cefazolin 1 GM/50 ML BAG IV (17:43)
[2018-02-25] MEDS: Lactated Ringers 1,000 ML 40 ML IV (23:05)
[2018-02-26] MEDS: oxyCODONE 5 MG Tablet PO ×4 (03:07→20:51)
[2018-02-26] MEDS: Cefazolin 1 GM/50 ML BAG IV (03:07)
[2018-02-26 03:10] VITALS: BP 111/60; PULSE 97; RESP 20; TEMP 36.6; O2SAT 95
[2018-02-26] MEDS: Ketorolac 30 MG/ML Syringe IV ×3 (06:08→17:59)
[2018-02-26 06:11] LABS: Hemoglobin 10.9 g/dl (12.0-15.0); Mean Corp Hgb Conc 32.1 g/gl (32-36); Mean Corpuscular Volume 84.2 fL (81-99); Mean Platelet Vol. 10.1 fl (6.2-12.0); Platelet Count 285 K/mm3 (150-450); RBC Distribution Width CV 14.5 % (11.6-14.6); RBC Distribution Width SD 43.9 fl (35.1-43.9); Red Blood Count 4.04 M/mm3 (4.2-5.4); White Blood Count 15.7 K/mm3 (4.4-11.0)
[2018-02-26 06:13] LABS: Scan Indicated on CBC? Y/N NO
[2018-02-26 06:28] LABS: Creatinine, Serum 0.84 mg/dL (0.55-1.02); EST Glomerular Filtration Rate 79 mL/min (>60); Est Glom Filt Rate - Afr Amer 96 mL/min (>60); Estimated Creatinine Clearance 76.88 ml/min
[2018-02-26 07:15] VITALS: O2SAT 94
[2018-02-26] MEDS: 0.9% NaCl Peripheral Flush Adult/Peds IV ×4 (08:12→17:59)
[2018-02-26] MEDS: HYDROmorphone 1 MG/ML Syringe IV ×3 (08:12→22:20)
--- NOTE | 2018-02-26 08:12 | PCM.PN.OB ---
Subjective: Painful this morning especially with movement but able to get from bathroom to chair. No significant nausea. Taking PO. Voiding. Objective: Afeb VSS. Hgb appropriate this morning. Urine output normal. Creatinine normal. - Physical Exam General: Alert, Oriented x3, Cooperative Lungs: Clear to auscultation, Normal air movement Cardiovascular: Regular rate, Regular Rhythm Abdomen: Non-Distended, - - Incision dressing dry. Extremities: No edema Skin: No rashes Vital Signs Temp Pulse Resp BP Pulse Ox 97.9 F 97 20 H 111/60 95 02/26/18 03:10 02/26/18 03:10 02/26/18 03:10 02/26/18 03:10 02/26/18 03:10 Oxygen Flow Rate (L/min) 2 Oxygen Delivery Method Room Air Weight: 219 lb 2.232 oz Body Mass Index (BMI) 37.6 Intake and Output for Last 24 Hours 02/24/18 02/25/18 02/26/18 23:59 23:59 23:59 Intake Total 3013 / 3013 1434.9 / 1434.9 Output Total 500 / 500 2425 / 2425 Balance 2513 / 2513 -990.1 / -990.1 Laboratory Tests Past 24 Hrs 02/25/18 02/26/18 02/26/18 08:37 05:27 05:27 WBC 15.7 H RBC 4.04 L Hgb 10.9 L Hct 34.0 L MCV 84.2 MCH 27.0 MCHC 32.1 RDW 14.5 RDW Differential 43.9 Plt Count 285 MPV 10.1 Creatinine 0.84 Estim Creat Clear Calc 76.88 Est GFR (MDRD) Af Amer 96 Est GFR (MDRD) Non-Af 79 Urine Test Negative POC Glucose 02/25/18 09:12 POC Glucose 59 L Medical Necessity - Tobacco Use Smoking Status: Never smoker Assessment/Plan All Active Problems Renal calculus, left (Acute) Back pain (Acute) POD#1 s/p MAURICIO/bilateral salpingectomy. Goal today is for better pain management. Otherwise doing well from post op standpoint. Anticipate discharge home tomorrow.
[2018-02-26 08:16] VITALS: BP 100/62; PULSE 99; RESP 18; TEMP 36.2; O2SAT 92
--- NOTE | 2018-02-26 08:18 | DCINST_ITS ---
Discharge Diet: No Restrictions Discharge Activity: Return to Normal Activity, May Not Drive, May not drive while taking narcotic pain medications., May Shower Return to work on:: 03/30/18 May shower in (days): 0 May resume sexual activity in: 6-8 weeks Call your doctor if your incision/area has: Sudden Increased Bleeding, Increased Pain/ Swelling, Increased Redness, Foul Smelling Discharge, Swelling at the incision site Call your doctor if you observe: Fever of 101 or Higher, Inability to urinate, Inability to have a bowel movement, Using more than one pad per hour, Shortness of breath, Chest pain, Calf discomfort, Uncontrolled pain Cleanse incision/area with: Soap & Water Allergies/Adverse Reactions: Allergies No Known Allergies Allergy (Verified 02/18/18 08:11) Medications to take at Discharge Ergocalciferol [Vitamin D] 50,000 unit PO Q7D 02/18/18 Ibuprofen 600 mg PO 4X/DAY #30 tab 02/26/18 Oxycodone [Oxyir] 5 - 10 mg PO Q4H PRN PRN 7 Days #28 tab 02/26/18 The following prescriptions were given: Oxycodone [Oxyir] 5 - 10 mg PO Q4H PRN PRN 7 Days #28 tab PRN Reason: Mod-Severe Pain (4-10/10) Ibuprofen 600 mg PO 4X/DAY #30 tab Primary Care Physician: Care Physician,No Primary [Primary Care Provider] - Test Results: Test results from this visit will be discussed in further detail at your follow- up appointment, if applicable. Please Follow Up With: Yefri Kilgore MD When: one week Proposed Discharge Date: 02/27/18
--- NOTE | 2018-02-26 11:06 | NURSING ---
PT RESTING QUIETLY W/EYES CLOSED, RESP EASY
[2018-02-26 14:00] VITALS: BP 101/61; PULSE 99; RESP 18; TEMP 36.7; O2SAT 94
--- NOTE | 2018-02-26 14:45 | CASEMGMT ---
JOSELUIS NIX ASSESSMENT Face to Face with patient for initial transition planning/care coordination assessment. JOSELUIS NIX introduced self and role at [facility]. Pt voices understanding and consents to assessment at this time. Pt resting in bed. Pt is A/O at this time and answers all questions appropriately. Care providers, pharmacy, and demographics verified/updated at this time. PCP: States was seeing Bakari but that she has moved locations and she does not know if she is able to continue to see her. Is interested in looking into other PCP's. Given PCP list taken from [facility] website for pt's location and also [facility] PCP list. Preferred [facility]acy: [facility] Insurance: [facility] Prescription Benefit: Yes Living Will/HPOA: States does not have LW or HCPOA . Interested in more information and would like to talk with SW. Will notify SW. LNOK: and 2 kids. Living Arrangements: Lives with her and 2 kids in a 2-story home. States no problems with the stairs. Transportation: Pt states drives self and states no transportation concerns at this time. also drives. DME/HHC: Denies using any DME and denies needs. States has never used HHC services in the past and denies needs. Pt wishes to return home and states has no concerns with going home at time of discharge. Pt states does not smoke or drink ETOH. Pt states she does not work, stating her had a stroke about 3 years ago and she helps to take care of him. Pt states she does have financial concerns and is interested in talking with SW. Will notify SW re: financial concerns and AD. Plan: Home Lorena UPTON RN, CM
[2018-02-26] MEDS: Acetaminophen 500 MG Tablet 1000 MG PO (20:51)
--- NOTE | 2018-02-26 21:03 | NURSING ---
walked in [place] with this rn, gait steady
[2018-02-26 22:13] VITALS: BP 100/53; PULSE 94; RESP 18; TEMP 37.1; O2SAT 93
[2018-02-26 22:30] VITALS: PULSE 94
[2018-02-27] MEDS: Ketorolac 30 MG/ML Syringe IV ×2 (00:06→06:16)
[2018-02-27] MEDS: Lactated Ringers 1,000 ML 40 ML IV (00:10)
[2018-02-27 03:19] VITALS: BP 122/68; PULSE 88; RESP 18; TEMP 36.9; O2SAT 95
[2018-02-27] MEDS: oxyCODONE 5 MG Tablet PO (03:23)
[2018-02-27 06:55] VITALS: O2SAT 94
--- NOTE | 2018-02-27 08:35 | PCM.PN.OB ---
Subjective: Somewhat less painful today. Sitting in chair. Voiding, eating, passing some flatus. Objective: Afeb VSS - Physical Exam General: Alert, Oriented x3, Cooperative, No apparent distress Lungs: Clear to auscultation, Normal air movement Cardiovascular: Regular rate, Regular Rhythm Abdomen: Soft, Non-Distended, - - Incision intact no erythema Extremities: No edema Skin: No rashes Neurological: Neuro grossly intact Psych/Mental Status: Normal Affect Vital Signs Temp Pulse Resp BP Pulse Ox 98.4 F 88 18 122/68 H 94 02/27/18 03:19 02/27/18 03:19 02/27/18 03:19 02/27/18 03:19 02/27/18 06:55 Oxygen Flow Rate (L/min) 2 Oxygen Delivery Method Room Air Weight: 219 lb 2.232 oz Body Mass Index (BMI) 37.6 Intake and Output for Last 24 Hours 02/25/18 02/26/18 02/27/18 23:59 23:59 23:59 Intake Total 3013 / 3013 3776.9 / 3776.9 1167 / 1167 Output Total 500 / 500 3875 / 3875 1050 / 1050 Balance 2513 / 2513 -98.1 / -98.1 117 / 117 Medical Necessity - Tobacco Use Smoking Status: Never smoker Assessment/Plan All Active Problems Renal calculus, left (Acute) Back pain (Acute) Progressing well on POD#2. Medically ok for discharge home today. Home going instructions and warnings given.
--- NOTE | 2018-02-27 08:38 | PCM.DC.SUM ---
Discharge Date and Diagnosis Date of Admission: 02/25/18 Date of Discharge: 18 - Primary Discharge Diagnosis S/P MAURICIO/bilateral salpingectomy Hospital Course and Treatment Operations: - - MAURICIO/bilateral salpingectomy Summary of Care Provided: The patient is a 42 year old F [admitted for scheduled surgery. This was performed without complication. Post operative course unremarkable except for pain management which seemed to improve by POD#2.] Discharged home on POD#2. - Physical Exam General: Alert, Oriented x3, Cooperative, No apparent distress Lungs: Clear to auscultation, Normal air movement Cardiovascular: Regular rate, Regular Rhythm Abdomen: Soft, Non-Distended, - - Incision intact Extremities: No edema Skin: No rashes Neurological: Neuro grossly intact Psych/Mental Status: Normal Affect Vital Signs Temp Pulse Resp BP Pulse Ox 98.4 F 88 18 122/68 H 94 02/27/18 03:19 02/27/18 03:19 02/27/18 03:19 02/27/18 03:19 18 06:55 Oxygen Flow Rate (L/min) 2 Oxygen Delivery Method Room Air Weight: 219 lb 2.232 oz Body Mass Index (BMI) 37.6 Intake and Output for Last 24 Hours 02/25/18 02/26/18 02/27/18 23:59 23:59 23:59 Intake Total 3013 / 3013 3776.9 / 3776.9 1167 / 1167 Output Total 500 / 500 3875 / 3875 1050 / 1050 Balance 2513 / 2513 -98.1 / -98.1 117 / 117 Discharge Diet: No Restrictions Discharge Activity: Return to Normal Activity, May Not Drive, May not drive while taking narcotic pain medications., May Shower Return to work on:: 03/30/18 May shower in (days): 0 May resume sexual activity in: 6-8 weeks Call your doctor if your incision/area has: Sudden Increased Bleeding, Increased Pain/ Swelling, Increased Redness, Foul Smelling Discharge, Swelling at the incision site Call your doctor if you observe: Fever of 101 or Higher, Inability to urinate, Inability to have a bowel movement, Using more than one pad per hour, Shortness of breath, Chest pain, Calf discomfort, Uncontrolled pain Cleanse incision/area with: Soap & Water Home Medications: Medications to take at Discharge Ergocalciferol [Vitamin D] 50,000 unit PO Q7D 02/18/18 Ibuprofen 600 mg PO 4X/DAY #30 tab 02/26/18 Oxycodone [Oxyir] 5 - 10 mg PO Q4H PRN PRN 7 Days #28 tab 02/26/18 Following Prescrptions Were Given to Patient: Oxycodone [Oxyir] 5 - 10 mg PO Q4H PRN PRN 7 Days #28 tab PRN Reason: Mod-Severe Pain (-12/24) Ibuprofen 600 mg PO 4X/DAY #30 tab Primary Care Physician: Care Physician,No Primary [Primary Care Provider] - Please Follow Up With: Yefri Kilgore MD When: one week Disposition: Home Minutes spent on discharge:: 15 Patient Condition:: Good Medical Necessity - Tobacco Use Smoking Status: Never smoker Meaningful Use Info Meaningful Use Diagnoses (Choose all that apply): None applicable
[2018-02-27 09:01] VITALS: BP 107/54; PULSE 94; RESP 18; TEMP 37.3; O2SAT 95
[2018-02-27 09:04] VITALS: PULSE 100
[2018-02-27] MEDS: Acetaminophen 500 MG Tablet 1000 MG PO (09:13)
--- NOTE | 2018-02-27 09:36 | NURSING ---
this RN asked pt if she would like prescriptions filled at [facility]. Pt states she will be taking them to [facility].
--- NOTE | 2018-02-27 10:15 | CASEMGMT ---
Addendum entered by Jun Black 02/27/18 14:01: Fax confirmation received that this faxed information was sent successfully. Original Note: SW spoke w/pt very briefly as pt is discharged and leaving. SW offered pt to give her information regarding LW/POW and financial resources, pt declined at this time. SW explained if she needs this information she can call the SW dept at the hospital after she is home and we can assist. Pt states understanding. VERNA Feliz, HAND WRAPPER OPERATOR
--- NOTE | 2018-02-27 10:30 | CASEMGMT ---
JOSELUIS NIX NOTE: Call placed to Lacey @ [facility]. Made aware pt is discharging today. Faxed d/c summary and instructions to her @ [facility] @ [phone]. Lorena VILLEDA CM
== END 2018-02-27 11:00 | disposition home or self-care (01) | DRG 513 ==
LOC: ACINP 08:27 → MS2 10:32
PROVIDERS: Admitting Provider Obstetrics & Gynecology; Referring Provider Obstetrics & Gynecology; Visit Provider Obstetrics & Gynecology
PROC: 0UT90ZZ Resection of Uterus, Open Approach (ICD-10-PCS; principal; 2018-02-25 10:05)
DX: N92.0 Excessive and frequent menstruation with regular cycle (principal); N94.6 Dysmenorrhea, unspecified
CPT/HCPCS: 36415; 80061; 81025; 82565; 82962; 84703; 85027; 85610; 85730; 86850; 86900; 88307; J7120; A4216; J2405

== ENCOUNTER → 2018-06-15 13:04 | Outpatient (CLI) | payer MEDICAID, SELFPAY ==
[2018-02-25 16:05] VITALS: BMI 37.6
--- NOTE | 2018-06-15 13:30 | RAD_ITS ---
STUDY: X-RAY - ABDOMEN/PELVIS REASON FOR EXAM: Female, 43 years old. Bilateral flank pain worse on the left side. History of renal stones. TECHNIQUE: Single AP view of the abdomen / pelvis. COMPARISON: 12/18/2017. FINDINGS: There is an unremarkable bowel gas pattern. There is a 7 mm calcification overlying the lower pole of the left kidney which could represent renal stone. There are right-sided pelvic calcifications unchanged since prior exam consistent with phleboliths. Normal visualized osseous structures. RAD/Abdomen Single View IMPRESSION: 1. Calcification overlying the lower pole of the left kidney which could represent renal stone. 2. Unremarkable gas pattern. Electronically Signed: John Funes MD at 13:02 EDT Tel , Service support ,
== END ==
PROVIDERS: Referring Provider Urology; Visit Provider Urology
DX: N20.0 Calculus of kidney (principal)
CPT/HCPCS: 74018

== ENCOUNTER 2018-07-21 06:15 | Day surgery (SDC) | payer MEDICAID, SELFPAY ==
[2018-02-25 16:05] VITALS: BMI 37.6
[2018-07-21] VITALS (8 sets, daily range): BP systolic 109–130; BP diastolic 55–86; PULSE 58–84; RESP 14–16; TEMP 36.1–36.3; O2SAT 95–100; BMI 36.7
[2018-07-21] MEDS: Cefazolin 2 GM in 0.9% Normal Saline 100 ML IV (07:56)
[2018-07-21] MEDS: Lubricating Jelly 60 GM Tube 30 GM TOPICAL (08:16)
--- NOTE | 2018-07-21 09:23 | OP.PCM_ITS ---
Problem List (1) Renal calculus, left Status: Acute (2) Back pain Status: Acute Report of Operation Date of Procedure: 07/21/18 Pre-Operative Diagnosis: Left renal calculus Post-Operative Diagnosis: Same Surgery/Procedure Performed:: Cystoscopy, left ureteroscopy, holmium laser lithotripsy, left ureteral stent insertion Description of Surgical Findings:: 1 cm stone well-visualized, soft and easily broken up, only debris remaining, left ureteral stent in good position. Type of Anesthesia:: General Special Medications: Ancef Description of Procedure: The patient is a 43-year-old female identified as having a left renal calculus that has failed extracorporal shockwave lithotripsy in the past. After discussing the risks, benefits and alternatives, she agreed to proceed with ureteroscopy and laser lithotripsy with stent insertion. Informed consent was obtained. The patient was taken to the operating room and placed on the operating room table. Anesthesia monitored the head, neck, airway, IV access and vital signs throughout the case. Once anesthesia was appropriately administered the patient was placed into dorsal lithotomy position and was prepped and draped in usual sterile fashion. A cystourethroscopy revealed no abnormality of the urinary bladder or urethra. Bilateral ureteral orifices were located on the area of the trigone. The left ureteral orifice was intubated with an 0.035 Glidewire followed by a second wire. One of these wires was then used to insert the ureteroscope. The second was used as a safety wire. The left renal stone was easily identified and lasered into small fragments without difficulty. There is a significant amount of debris due to the soft nature of the stone. Following adequate lithotripsy, a 6 Tanzanian 24 cm double-J stent was inserted under fluoroscopic visualization with curling achieved in the renal pelvis as well as the urinary bladder. Patient's bladder was then emptied and the case was terminated. She was awakened and taken to the recovery room in good condition. There were no complications during this procedure. Grafts/Implants Used: 6 Tanzanian 24 cm double-J stent - Complications None - Admit VTE Documentation VTE Present on Admission: Yes VTE Mechan Device Prophylaxis: SCD's VTE Pharm Prophylaxis ordered?: No Reason prophylaxis not ordered:: Treatment Not Indicated
--- NOTE | 2018-07-21 09:44 | DCINST_ITS ---
Discharge Diet: No Restrictions Discharge Activity: May not drive while taking narcotic pain medications. May resume sexual activity in: 1 week Call your doctor if you observe: Fever of 101 or Higher, Inability to urinate, Inability to have a bowel movement, Shortness of breath, Chest pain, Calf discomfort, Uncontrolled pain Allergies/Adverse Reactions: Allergies No Known Allergies Allergy (Verified 07/14/18 09:18) Medications to take at Discharge NK 07/14/18 Primary Care Physician: Care Physician,No Primary [Primary Care Provider] - Test Results: Test results from this visit will be discussed in further detail at your follow- up appointment, if applicable. Please Follow Up With: Zari Moss MD When: 2-3 days for stent removal. call office for appt. Proposed Discharge Date: 07/21/18
== END 2018-07-21 11:15 | disposition home or self-care (01) ==
LOC: SDC 06:16 → AC 06:17
PROVIDERS: Referring Provider Urology; Visit Provider Urology
PROC: 0TJ98ZZ Inspection of Ureter, Via Natural or Artificial Opening Endoscopic (ICD-10-PCS; CPT 52352; principal; 2018-07-21 07:50)
DX: N20.0 Calculus of kidney (principal); R35.0 Frequency of micturition; R39.15 Urgency of urination; R73.03 Prediabetes; M54.5 Low back pain; G89.29 Other chronic pain; F32.9 Major depressive disorder, single episode, unspecified; F41.9 Anxiety disorder, unspecified; Z79.899 Other long term (current) drug therapy
CPT/HCPCS: 52356; 76000; J7120; C1769; C2617; J2405

== ENCOUNTER 2018-07-22 09:55 | Observation (INO) | payer MEDICAID, SELFPAY ==
[2018-07-21 06:50] VITALS: BMI 36.7
[2018-07-22] VITALS (14 sets, daily range): BP systolic 101–133; BP diastolic 51–79; PULSE 74–122; RESP 14–24; TEMP 36.4–39.3; O2SAT 91–100; BMI 36.3; BMI 37.2
--- NOTE | 2018-07-22 10:10 | EKG12_ITS ---
Test Reason : CP Blood Pressure : / mmHG Vent. Rate : 106 BPM Atrial Rate : 106 BPM P-R Int : 166 ms QRS Dur : 082 ms QT Int : 318 ms P-R-T Axes : 035 033 032 degrees QTc Int : 422 ms Sinus tachycardia Otherwise normal ECG Confirmed by SCOTTY NGERO ([id number]), metropolitan editor LUBA ANDRADE ([id number]) on 07/24/2018 10:50:29 AM Referred By: ROB Confirmed By:SCOTTY NEGRO
--- NOTE | 2018-07-22 10:11 | ED.VISSUMM ---
- ER Visit Summary Date of Service: 07/22/18 Chief Complaint: Left flank pain, fevers History of Present Illness: The patient is a 43 F who has left flank pain and a fever. The patient had a laser lithotripsy with a left ureteral stent placed yesterday by Dr. Moss. She states that throughout the night her temperature was up to 103.4 ?F at home. She is also having a lot of left flank pain and leg cramping. She tried Percocet at home without any relief. She denies any nausea or vomiting. This was all done as an outpatient yesterday. She called the urologist office and they told her to come here for evaluation. Physical Examination: Vital signs are reviewed. Temperature is 100.3 ?F. She is tachycardic. HEENT exam unremarkable. Heart is tachycardic and regular rhythm without murmurs. Lungs are clear bilaterally. Abdomen is soft with diffuse tenderness. She has left CVA tenderness as well. Extremity have no edema or tenderness. Skin exam normal. Her neurologic exam is normal. Test Results: White blood cell count 14,000, lactate 1.7. 2+ leukocytes and positive nitrates in her urine. She has 25-50 whites and 25-50 reds. Chest x-ray normal EKG unremarkable Emergency Department Course and Treatment: Patient does meet sepsis criteria. She was given IV fluids and morphine. I spoke with Dr. Moss and the patient will be admitted on [facility] Treatment Plan: [] Disposition: Admit Impression: Sepsis, pyelonephritis, recent lithotripsy with stent placement This note was generated with ZEB dictation software. It may contain incorrect words, spelling, and punctuation that were not noted in review of the chart prior to signing ED Disposition - Plan for ED Patient: Referrals: Care Physician,No Primary [Primary Care Provider] -
--- NOTE | 2018-07-22 10:14 | RAD_ITS ---
STUDY: X-RAY CHEST REASON FOR EXAM: Female, 43 years old. Left flank pain. Fever. Recent left ureteral stent placement. TECHNIQUE: Single AP portable view of the chest. COMPARISON: None. FINDINGS: The lungs are clear and expanded. There is no demonstrated pleural abnormality. Normal size heart. Normal mediastinum and chris. Normal visualized pulmonary arteries. Normal visualized aortic arch and descending thoracic aorta. Normal visualized thoracic spine. Normal visualized ribs, clavicles, and shoulders. There is no demonstrated abnormality of the visualized soft tissue structures of the upper abdomen. RAD/Chest 1 View (Portable) IMPRESSION: Normal x-ray examination of the chest. Electronically Signed: Natanael Morris, at 10:36 EDT , Service support ,
[2018-07-22] MEDS: 0.9% Normal Saline 1,000 ML 999 ML IV (10:30)
[2018-07-22] MEDS: Morphine 4 MG/ML Syringe IV (10:30)
[2018-07-22 10:32] LABS: Absolute Lymphocyte Count 1.74 X10^3/ul (0.83-4.51); Absolute Neutrophil Count 10.7 X10^3/uL (2.0-7.7); Basophil# 0.03 X10^3/uL; Basophil% 0.2 % (0-1); Eosinophils% 3.6 % (0-5); Hemoglobin 13.3 g/dl (12.0-15.0); Lymphocyte # 1.74 X10^3/ul (4.0); Lymphocyte % 12.4 % (19-41); Mean Corp Hgb Conc 32.4 g/gl (32-36); Mean Corpuscular Hgb 26.3 pg (27.0-32.0); Mean Corpuscular Volume 81.2 fL (81-99); Mean Platelet Vol. 9.6 fl (6.2-12.0); Monocyte# 1.07 X10^3/uL; Monocyte% 7.6 % (0-10); Neutrophil # 10.65 X10^3/uL (2.7-7.7); Neutrophil % 75.9 % (47-70); Platelet Count 302 K/mm3 (150-450); RBC Distribution Width CV 14.9 % (11.6-14.6); RBC Distribution Width SD 43.5 fl (35.1-43.9); Red Blood Count 5.05 M/mm3 (4.2-5.4)
[2018-07-22 10:33] LABS: POSITIVE COUNT NO; POSITIVE DIFFERENTIAL NO; POSITIVE MORPHOLOGY NO
[2018-07-22 10:42] LABS: Mucous, Urine 0 SEEN /hpf (<or=2+)
[2018-07-22 10:45] LABS: Color, Urine Yellow (Yellow); Glucose, Dipstick Normal (Normal); Ketone-Dipstick Negative (Negative); Leukocyte Esterase-Dipstick 500 /ul (Negative); Nitrite-Dipstick Positive (Negative); Occult Blood-Urine 250 /ul (Negative); Protein-Dipstick 30 mg/dl (Negative); Urine Clarity Sl. Cloudy (Clear); Urine Urobilinogen 4 mg/dl (Normal)
[2018-07-22 10:47] LABS: Urine Bilirubin Dipstick 3 mg/dL (Negative)
[2018-07-22 10:48] LABS: International Normalized Ratio 1.2; Prothrombin Time (Protime)PT. 14.9 SECONDS (11.7-14.9)
[2018-07-22 10:49] LABS: Partial Thromboplast Time 30.1 Seconds (24.1-36.2)
[2018-07-22 10:52] LABS: Lactic Acid 1.7 mmol/L (0.4-2.0)
[2018-07-22 10:56] LABS: Bacteria 1+ /hpf (None Seen); Red Blood Cells-Urine 25-50 SEEN /hpf (0-5); Squamous Epithelial Cells - UA 0-5 SEEN /hpf (5-10); White Blood Cells 25-50 SEEN /hpf (0-5)
[2018-07-22 10:56] LABS: ALB/GLOB Ratio 0.7 RATIO (0.9-2.4); AST(SGOT) 23 U/L (15-37); Alanine Aminotransfer ALT/SGPT 66 U/L (13-56); Albumin, Serum 3.4 g/dL (3.2-5.0); Alkaline Phosphatase 107 U/L (45-117); Anion Gap 4 (5-15); BUN 10 mg/dL (7-18); BUN/Creat Ratio 10.7 RATIO (10-20); Calcium,Total 8.5 mg/dL (8.5-10.1); Chloride 107 mmol/L (98-107); Creatinine, Serum 0.94 mg/dL (0.55-1.02); EST Glomerular Filtration Rate 70 mL/min (>60); Est Glom Filt Rate - Afr Amer 85 mL/min (>60); Estimated Creatinine Clearance 68.01 ml/min; Globulin 4.8 g/dL (2.2-4.2); Glucose 114 mg/dL (74-106); Potassium 3.7 mmol/L (3.5-5.1); Protein, Total 8.2 g/dL (6.4-8.2); Sodium Level 136 mmol/L (136-145)
--- NOTE | 2018-07-22 11:12 | RAD_ITS ---
STUDY: X-RAY - ABDOMEN/PELVIS REASON FOR EXAM: Female, 43 years old. Left-sided back pain. Kidney stone surgery yesterday TECHNIQUE: Two AP supine views of the abdomen and pelvis. COMPARISON: 06/15/2018 FINDINGS: Normal visualized lung bases. There is an unremarkable bowel gas pattern. There is no demonstrated free abdominal air. Left ureteral stent has been placed. Previously identified large left lower pole stone is no longer clearly identified. No evidence of fragments of stones. Stable right pelvic phleboliths Normal soft tissue structures. Normal visualized osseous structures. RAD/Abdomen Single View IMPRESSION: As above Electronically Signed: Rodney Starr DO at 11:55 EDT Tel , Service support ,
[2018-07-22] MEDS: Acetaminophen 325 MG Tablet 650 MG PO (11:31)
[2018-07-22] MEDS: HYDROmorphone 1 MG/ML Syringe IV ×3 (11:41→22:56)
[2018-07-22] MEDS: Cefazolin 1 GM/50 ML BAG IV ×2 (11:43→19:53)
[2018-07-22] MEDS: Dext 5%-0.45% NS 1,000 ML 125 ML IV ×2 (13:47→21:18)
[2018-07-22] MEDS: HYDROmorphone 0.5 MG/0.5 ML SYRINGE IV (13:48)
[2018-07-22] MEDS: 0.9% NaCl Peripheral Flush Adult/Peds IV ×3 (13:48→22:56)
[2018-07-22] MEDS: Ketorolac 30 MG/ML Syringe IV (13:48)
[2018-07-22] MEDS: Phenazopyridine 95 MG Tablet 190 MG PO ×2 (14:14→19:54)
[2018-07-22] MEDS: FLUoxetine 20 MG Capsule 40 MG PO (14:15)
[2018-07-22] MEDS: busPIRone 15 MG TABLET 7.5 MG PO (14:15)
--- NOTE | 2018-07-22 16:48 | PCM.PN.GU ---
Physical Exam Subjective: Patient is lying in bed in discomfort but no acute distress. She reports that the most significant pain is with voiding and it is in her left kidney. She is mildly nauseated but no vomiting. She reports that last night she had a fever to 103. She called the office this morning just reporting pain. Feeling better now that fever broke. - Physical Exam Vital Signs Temp 97.6 F L 07/22/18 16:20 Pulse 74 07/22/18 15:01 Resp 20 H 07/22/18 12:30 BP 103/58 L 07/22/18 12:30 Pulse Ox 93 07/22/18 16:30 Intake & Output 07/20/18 07/21/18 07/22/18 23:59 23:59 23:59 Weight: 98.4 kg General: Alert, Oriented x3, Cooperative, - - uncomfortable but not in distress. HEENT: Atraumatic, Normocephalic Oral: Moist Mucosa Neck: Supple, Trachea Midline Lungs: Normal air movement Cardiovascular: Tachycardic Abdomen: Soft Rectal: Exam deferred Extremities: - - SCD's in place. Skin: No rashes Musculoskeletal: No Muscle Wasting Neurological: Cranial nerves II-XII grossly intact Laboratory Tests Past 24 Hrs 07/22/18 07/22/18 07/22/18 10:05 10:20 10:20 WBC 14.0 H RBC 5.05 Hgb 13.3 Hct 41.0 MCV 81.2 MCH 26.3 L MCHC 32.4 RDW 14.9 H RDW Differential 43.5 Plt Count 302 MPV 9.6 Immature Gran % (Auto) 0.300 Neut % (Auto) 75.9 H Lymph % (Auto) 12.4 L [place] % (Auto) 7.6 Eos % (Auto) 3.6 Baso % (Auto) 0.2 Absolute Neuts (auto) 10.7 H Absolute Lymphs (auto) 1.74 Total Counted Not Reportable PT 14.9 INR 1.2 APTT 30.1 Sodium Potassium Chloride Carbon Dioxide Anion Gap BUN Creatinine Estim Creat Clear Calc Est GFR (MDRD) Af Amer Est GFR (MDRD) Non-Af BUN/Creatinine Ratio Glucose Lactic Acid Calcium Total Bilirubin AST ALT Alkaline Phosphatase Total Protein Albumin Globulin Albumin/Globulin Ratio Urine Color Yellow Urine Clarity Sl. Cloudy Urine pH 7.0 Ur Specific [place] 1.010 Urine Protein 30 H Urine Glucose (UA) Normal Urine Ketones Negative Urine Occult Blood 250 H Urine Nitrite Positive H Urine Bilirubin 3 H Urine Urobilinogen 4 H Ur Leukocyte Esterase 500 H Urine RBC 25-50 SEEN Urine WBC 25-50 SEEN Ur Squamous Epith Cells 0-5 SEEN Urine Bacteria 1+ Urine Mucus 0 SEEN 07/22/18 07/22/18 10:20 10:20 WBC RBC Hgb Hct MCV MCH MCHC RDW RDW Differential Plt Count MPV Immature Gran % (Auto) Neut % (Auto) Lymph % (Auto) [place] % (Auto) Eos % (Auto) Baso % (Auto) Absolute Neuts (auto) Absolute Lymphs (auto) Total Counted PT INR APTT Sodium 136 Potassium 3.7 Chloride 107 Carbon Dioxide 25.0 Anion Gap 4 L BUN 10 Creatinine 0.94 Estim Creat Clear Calc 68.01 Est GFR (MDRD) Af Amer 85 Est GFR (MDRD) Non-Af 70 BUN/Creatinine Ratio 10.7 Glucose 114 H Lactic Acid 1.7 Calcium 8.5 Total Bilirubin 0.60 AST 23 ALT 66 H Alkaline Phosphatase 107 Total Protein 8.2 Albumin 3.4 Globulin 4.8 H Albumin/Globulin Ratio 0.7 L Urine Color Urine Clarity Urine pH Ur Specific [place] Urine Protein Urine Glucose (UA) Urine Ketones Urine Occult Blood Urine Nitrite Urine Bilirubin Urine Urobilinogen Ur Leukocyte Esterase Urine RBC Urine WBC Ur Squamous Epith Cells Urine Bacteria Urine Mucus Medical Necessity - Tobacco Use Smoking Status: Never smoker Assessment/Plan All Active Problems Renal calculus, left (Acute) Back pain (Acute) Await urine culture. Continue supportive care, antibiotics and pain control. Stent is in good position on KUB. Bladder scan PVR. If temp greater than 101.5 tonight, guo to straight drain.
[2018-07-22] MEDS: Ondansetron 4 MG/2 ML Vial IV (21:17)
[2018-07-22] MEDS: Ketorolac 15 MG/ML Vial IV (21:17)
[2018-07-23] VITALS (11 sets, daily range): BP systolic 74–119; BP diastolic 36–61; PULSE 67–79; RESP 14–18; TEMP 36.6–37.3; O2SAT 94–95
[2018-07-23] MEDS: proCHLORPERazine 10 MG/2 ML Vial IV (02:21)
[2018-07-23] MEDS: HYDROmorphone 1 MG/ML Syringe IV (02:21)
--- NOTE | 2018-07-23 03:06 | CT_ITS ---
STUDY: CT ABDOMEN AND PELVIS WITHOUT CONTRAST REASON FOR EXAM: Female, 43 years old. Back pain and fever. Patient had lithotripsy and left ureteral stent placement on 07/21/2018. Previous cholecystectomy. RADIATION DOSAGE (If Supplied By Facility): CTDIvol = ( 19.44 ) mGy, DLP = ( 971.09 ) mGycm TECHNIQUE: Transaxial images were obtained from the dome of the diaphragm to the symphysis pubis without oral contrast, and without intravenous contrast. Sagittal and coronal images were reconstructed. Individualized dose optimization techniques were used for this CT. COMPARISON: 11/28/2017. FINDINGS: There is atelectasis in the visualized lung bases. The visualized portions of the heart are within normal limits. The liver is enlarged and there is decreased attenuation of the liver consistent with steatosis. There is nonvisualization of the gallbladder, consistent with a prior cholecystectomy. There is no bile duct dilatation. Normal spleen. Normal pancreas. Normal bilateral adrenal glands. Normal right kidney. There is a left ureteral stent with its proximal curled in the renal pelvis and its distal end in the urinary bladder. There is a 1 cm irregularly shaped nonobstructive left lower pole renal calculus versus dense collection of smaller calculi. There is also a 2 mm nonobstructive left lower pole renal calculus. There is left perinephric fat infiltration which is probably the result of lithotripsy. There is no demonstrated hydronephrosis. There is no visualized left renal hematoma. There is no visualized ureteral calculus. Assessment of the stomach is limited by nondistention. Normal small intestine. Normal colon. The appendix is visualized on axial images 123-133 and it appears normal.. Normal abdominal aorta. Normal inferior vena cava. Normal retroperitoneum. There is a small amount of air in the urinary bladder lumen, presumably due to recent instrumentation. Bladder otherwise appears normal. There is absence of the uterus consistent with a prior hysterectomy. Normal abdominal wall. Normal osseous structures. CT/Abdomen/Pelvis without Cont IMPRESSION: Left ureteral stent is in adequate position. No demonstrated hydronephrosis of the left kidney. Nonobstructive left lower pole renal calculi. Hepatomegaly with fatty infiltration of the liver. Previous cholecystectomy and hysterectomy. Electronically Signed: rAthur Loyd MD at 5:00 EDT , Service support ,
[2018-07-23] MEDS: Ketorolac 15 MG/ML Vial IV (03:52)
[2018-07-23] MEDS: Cefazolin 1 GM/50 ML BAG IV (03:52)
[2018-07-23] MEDS: Dext 5%-0.45% NS 1,000 ML 125 ML IV (03:55)
[2018-07-23] MEDS: 0.9% NaCl Peripheral Flush Adult/Peds IV ×2 (05:31→05:36)
[2018-07-23] MEDS: busPIRone 15 MG TABLET 7.5 MG PO (05:36)
[2018-07-23] MEDS: Enoxaparin 40 MG/0.4 ML Syringe SC (05:36)
[2018-07-23 06:45] LABS: Absolute Lymphocyte Count 2.28 X10^3/ul (0.83-4.51); Absolute Neutrophil Count 7.7 X10^3/uL (2.0-7.7); Basophil# 0.02 X10^3/uL; Basophil% 0.2 % (0-1); Eosinophil# 0.78 X10^3/uL; Eosinophils% 6.6 % (0-5); Hematocrit 32.1 % (37-47); Hemoglobin 10.3 g/dl (12.0-15.0); Lymphocyte # 2.28 X10^3/ul (4.0); Lymphocyte % 19.4 % (19-41); Mean Corp Hgb Conc 32.1 g/gl (32-36); Mean Corpuscular Hgb 26.9 pg (27.0-32.0); Mean Corpuscular Volume 83.8 fL (81-99); Mean Platelet Vol. 9.5 fl (6.2-12.0); Monocyte# 0.95 X10^3/uL; Monocyte% 8.1 % (0-10); Neutrophil # 7.69 X10^3/uL (2.7-7.7); Neutrophil % 65.5 % (47-70); Platelet Count 218 K/mm3 (150-450); RBC Distribution Width CV 14.8 % (11.6-14.6); RBC Distribution Width SD 44.5 fl (35.1-43.9); Red Blood Count 3.83 M/mm3 (4.2-5.4); White Blood Count 11.7 K/mm3 (4.4-11.0)
[2018-07-23 06:49] LABS: POSITIVE COUNT NO; POSITIVE DIFFERENTIAL NO; POSITIVE MORPHOLOGY NO
[2018-07-23 06:59] LABS: Anion Gap 7 (5-15); BUN 6 mg/dL (7-18); BUN/Creat Ratio 8.5 RATIO (10-20); Calcium,Total 7.7 mg/dL (8.5-10.1); Chloride 106 mmol/L (98-107); Creatinine, Serum 0.71 mg/dL (0.55-1.02); EST Glomerular Filtration Rate 97 mL/min (>60); Est Glom Filt Rate - Afr Amer 117 mL/min (>60); Estimated Creatinine Clearance 90.04 ml/min; Glucose 123 mg/dL (74-106); Potassium 3.5 mmol/L (3.5-5.1); Sodium Level 137 mmol/L (136-145)
[2018-07-23] MEDS: HYDROcodone Bitartrate/Apap 5/325 Tablet PO (08:16)
[2018-07-23] MEDS: FLUoxetine 20 MG Capsule 40 MG PO (08:17)
[2018-07-23] MEDS: Docusate Sodium 100 MG Capsule 200 MG PO (08:17)
[2018-07-23] MEDS: Phenazopyridine 95 MG Tablet 190 MG PO (08:18)
--- NOTE | 2018-07-23 10:21 | PN_ITS ---
Physical Exam Subjective: Feeling better today. Nausea improved. Soreness bilaterally, especially with urination. Notes some blood in urine. Would like to have stent removed. Has been taking adequate PO fluids. - Physical Exam Vital Signs Temp 99.2 F H 07/23/18 09:50 Pulse 79 07/23/18 09:50 Resp 16 07/23/18 09:50 BP 113/61 07/23/18 09:50 Pulse Ox 94 07/23/18 09:50 Intake & Output 07/21/18 07/22/18 07/23/18 23:59 23:59 23:59 Intake Total 2325 / 2325 2464 / 2464 Output Total 200 / 200 1500 / 1500 Balance 2125 / 2125 964 / 964 Weight: 98.4 kg Intake: Oral 1100 / 1100 740 / 740 IV fluid/meds 1225 / 1225 1724 / 1724 Output: Urine 200 / 200 1500 / 1500 Other: Number of Voids 2 2 General: Alert, Oriented x3, Cooperative, No apparent distress HEENT: Atraumatic, Normocephalic Oral: Moist Mucosa Neck: Supple, Trachea Midline Lungs: Normal air movement Cardiovascular: Regular rate Abdomen: Soft, Non-Distended Rectal: Exam deferred Skin: No rashes Musculoskeletal: No Muscle Wasting Neurological: Cranial nerves II-XII grossly intact Psych/Mental Status: Normal Affect Laboratory Tests Past 24 Hrs 07/22/18 07/22/18 07/22/18 10:05 10:20 10:20 WBC 14.0 H RBC 5.05 Hgb 13.3 Hct 41.0 MCV 81.2 MCH 26.3 L MCHC 32.4 RDW 14.9 H RDW Differential 43.5 Plt Count 302 MPV 9.6 Immature Gran % (Auto) 0.300 Neut % (Auto) 75.9 H Lymph % (Auto) 12.4 L [place] % (Auto) 7.6 Eos % (Auto) 3.6 Baso % (Auto) 0.2 Absolute Neuts (auto) 10.7 H Absolute Lymphs (auto) 1.74 Total Counted Not Reportable PT 14.9 INR 1.2 APTT 30.1 Sodium Potassium Chloride Carbon Dioxide Anion Gap BUN Creatinine Estim Creat Clear Calc Est GFR (MDRD) Af Amer Est GFR (MDRD) Non-Af BUN/Creatinine Ratio Glucose Lactic Acid Calcium Total Bilirubin AST ALT Alkaline Phosphatase Total Protein Albumin Globulin Albumin/Globulin Ratio Urine Color Yellow Urine Clarity Sl. Cloudy Urine pH 7.0 Ur Specific [place] 1.010 Urine Protein 30 H Urine Glucose (UA) Normal Urine Ketones Negative Urine Occult Blood 250 H Urine Nitrite Positive H Urine Bilirubin 3 H Urine Urobilinogen 4 H Ur Leukocyte Esterase 500 H Urine RBC 25-50 SEEN Urine WBC 25-50 SEEN Ur Squamous Epith Cells 0-5 SEEN Urine Bacteria 1+ Urine Mucus 0 SEEN 07/22/18 07/22/18 07/23/18 10:20 10:20 06:25 WBC 11.7 H RBC 3.83 L Hgb 10.3 L Hct 32.1 L MCV 83.8 MCH 26.9 L MCHC 32.1 RDW 14.8 H RDW Differential 44.5 H Plt Count 218 MPV 9.5 Immature Gran % (Auto) 0.200 Neut % (Auto) 65.5 Lymph % (Auto) 19.4 [place] % (Auto) 8.1 Eos % (Auto) 6.6 H Baso % (Auto) 0.2 Absolute Neuts (auto) 7.7 Absolute Lymphs (auto) 2.28 Total Counted Not Reportable PT INR APTT Sodium 136 Potassium 3.7 Chloride 107 Carbon Dioxide 25.0 Anion Gap 4 L BUN 10 Creatinine 0.94 Estim Creat Clear Calc 68.01 Est GFR (MDRD) Af Amer 85 Est GFR (MDRD) Non-Af 70 BUN/Creatinine Ratio 10.7 Glucose 114 H Lactic Acid 1.7 Calcium 8.5 Total Bilirubin 0.60 AST 23 ALT 66 H Alkaline Phosphatase 107 Total Protein 8.2 Albumin 3.4 Globulin 4.8 H Albumin/Globulin Ratio 0.7 L Urine Color Urine Clarity Urine pH Ur Specific [place] Urine Protein Urine Glucose (UA) Urine Ketones Urine Occult Blood Urine Nitrite Urine Bilirubin Urine Urobilinogen Ur Leukocyte Esterase Urine RBC Urine WBC Ur Squamous Epith Cells Urine Bacteria Urine Mucus 07/23/18 06:25 WBC RBC Hgb Hct MCV MCH MCHC RDW RDW Differential Plt Count MPV Immature Gran % (Auto) Neut % (Auto) Lymph % (Auto) [place] % (Auto) Eos % (Auto) Baso % (Auto) Absolute Neuts (auto) Absolute Lymphs (auto) Total Counted PT INR APTT Sodium 137 Potassium 3.5 Chloride 106 Carbon Dioxide 24.0 Anion Gap 7 BUN 6 L Creatinine 0.71 Estim Creat Clear Calc 90.04 Est GFR (MDRD) Af Amer 117 Est GFR (MDRD) Non-Af 97 BUN/Creatinine Ratio 8.5 L Glucose 123 H Lactic Acid Calcium 7.7 L Total Bilirubin AST ALT Alkaline Phosphatase Total Protein Albumin Globulin Albumin/Globulin Ratio Urine Color Urine Clarity Urine pH Ur Specific [place] Urine Protein Urine Glucose (UA) Urine Ketones Urine Occult Blood Urine Nitrite Urine Bilirubin Urine Urobilinogen Ur Leukocyte Esterase Urine RBC Urine WBC Ur Squamous Epith Cells Urine Bacteria Urine Mucus Medical Necessity - Tobacco Use Smoking Status: Never smoker Assessment/Plan All Active Problems Renal calculus, left (Acute) Back pain (Acute) Home today. Stop at the office for cystoscopy and stent removal due to significant pain. Continue antibiotics and follow up on cultures.
--- NOTE | 2018-07-23 10:27 | DCINST_ITS ---
Discharge Diet: No Restrictions Discharge Activity: May not drive while taking narcotic pain medications. May resume sexual activity in: 1 week Call your doctor if you observe: Fever of 101 or Higher, Inability to urinate, Inability to have a bowel movement, Shortness of breath, Chest pain, Calf discomfort, Uncontrolled pain Allergies/Adverse Reactions: Allergies No Known Allergies Allergy (Verified 07/22/18 09:55) Medications to take at Discharge Oxycodone HCl/Acetaminophen [Percocet 5-325] 1 - 2 tab PO Q6H PRN PRN 7 Days #20 tab 07/21/18 Phenazopyridine HCl [Pyridium] 200 mg PO TID PRN PRN 7 Days #30 tab 07/21/18 Ergocalciferol [Vitamin D] 50,000 unit PO QWEEK 07/22/18 Fluoxetine HCl 40 mg PO DAILY 07/22/18 busPIRone [Buspar] 7.5 mg PO TID 07/22/18 Acetaminophen [Tylenol Tablet] 325 - 650 mg PO Q4H PRN PRN tablet 07/23/18 Cephalexin [Keflex] 500 mg PO Q8 5 Days #15 cap 07/23/18 Docusate Sodium [Colace] 200 mg PO BID capsule 07/23/18 The following prescriptions were given: Cephalexin [Keflex] 500 mg PO Q8 5 Days #15 cap Primary Care Physician: Care Physician,No Primary [Primary Care Provider] - Test Results: Test results from this visit will be discussed in further detail at your follow- up appointment, if applicable. Please Follow Up With: Zari Moss MD When: today for stent removal. Proposed Discharge Date: 07/23/18
--- NOTE | 2018-07-23 11:19 | NURSING ---
spoke with nurse Perea- updated on current vitals as per md request
--- NOTE | 2018-09-03 10:32 | PCM.HP.STD ---
History of Present Illness Date of Admission: 07/22/18 Chief Complaint: fever and kidney pain, nausea. The patient is a 43 year old F who underwent a ureteroscopy with laser lithotripsy of a left renal calculus with stent insertion and is now coming in for fever with nausea and left flank pain. The pain is uncontrolled at home and the fever was to 103. She is now feeling better, nauseous but no vomiting, pain still present. Past Medical History Allergies No Known Allergies Allergy (Verified 07/22/18 09:55) Home Medications: Ambulatory Orders Medication Instructions Recorded Ergocalciferol [Vitamin D] 50,000 unit PO QWEEK 07/22/18 Fluoxetine HCl 40 mg PO DAILY 07/22/18 busPIRone [Buspar] 7.5 mg PO TID 07/22/18 Acetaminophen [Tylenol Tablet] 325 - 650 mg PO Q4H PRN PRN tablet 07/23/18 Docusate Sodium [Colace] 200 mg PO BID capsule 07/23/18 Surgical History: - - Cystoscopy and ureteroscopy and laser lithotripsy with stent insertion Smoking Status: Never smoker Review of Systems Constitutional: Reports: Chills, Fever, Weakness Eyes: Denies: Vision Change HEENT: Denies: Visual Changes Cardiovascular: Denies: Chest Pain Respiratory: Denies: Shortness of Breath Gastrointestinal: Reports: Abdominal Pain, Nausea, Vomiting Genitourinary: Reports: Dysuria, Urgency, - - Left flank pain Gynecological: Denies: Breast symptoms Musculoskeletal: Denies: Muscle pain Neurological: Denies: Confusion VTE Information - Inpt Only VTE Present on Admission: Yes VTE Mechan Device Prophylaxis: SCD's VTE Pharm Prophylaxis ordered?: Yes - Physical Exam General: Alert, Oriented x3, Cooperative, No apparent distress HEENT: Atraumatic, Normocephalic Oral: Dry Mucosa Neck: Supple Lungs: Normal air movement Cardiovascular: Regular Rhythm Abdomen: Soft, Tender Skin: No rashes Musculoskeletal: No Tenderness to Palpation of Joints or Extremities, No Muscle Wasting Neurological: Cranial nerves II-XII grossly intact Psych/Mental Status: Anxious Vital Signs Temp Pulse Resp BP Pulse Ox 98.7 F 78 18 100/54 L 94 07/23/18 11:16 07/23/18 11:16 07/23/18 11:16 07/23/18 11:16 07/23/18 09:50 Oxygen Flow Rate (L/min) 2 Oxygen Delivery Method Room Air Weight: 98.4 kg Body Mass Index (BMI) 37.2 Assessment/Plan All Active Problems (Last Updated 09/03/18 @ 10:34 by Zari Moss MD) Renal calculus, left (Acute) Back pain (Acute) Nephrolithiasis (Acute) Antibiotics and await culture Fluid resuscitation Pain control
== END 2018-07-23 09:53 | disposition home or self-care (01) ==
LOC: ED 10:34 → PCU 11:50
PROVIDERS: Admitting Provider Urology; Emergency Provider Emergency Medicine; Visit Provider Urology
DX: N20.0 Calculus of kidney (principal); R35.0 Frequency of micturition; R39.15 Urgency of urination; R73.03 Prediabetes; M54.5 Low back pain; G89.29 Other chronic pain; F32.9 Major depressive disorder, single episode, unspecified; F41.9 Anxiety disorder, unspecified; Z79.899 Other long term (current) drug therapy
CPT/HCPCS: 52356; 36415; 71045; 74018; 74176; 76000; 80048; 80053; 81001; 83605; 85025; 85610; 85730; 87040; 87086; 93005; 96361; 96365; 96366; 96372; 96375; 96376; 99218; 99285; J7030; J7040; J7120; A4216; C1769; C2617; G0378; J2405; J7799

== ENCOUNTER → 2018-07-31 08:15 | Outpatient (CLI) | payer MEDICAID, SELFPAY ==
[2018-07-22 12:30] VITALS: BMI 37.2
--- NOTE | 2018-07-31 08:17 | CT_ITS ---
STUDY: CT ABDOMEN AND PELVIS WITHOUT CONTRAST REASON FOR EXAM: Female, 43 years old. Left flank pain. History of lithotripsy. RADIATION DOSAGE (If Supplied By Facility): CTDIvol = ( 14.54 ) mGy, DLP = ( 705.91 ) mGycm TECHNIQUE: Transaxial images were obtained from the dome of the diaphragm to the symphysis pubis without oral contrast, and without intravenous contrast. Sagittal and coronal images were reconstructed. Individualized dose optimization techniques were used for this CT. COMPARISON: Comparison is made with prior study dated July 23, 2018. FINDINGS: Minimal increased markings in the anterior aspect of the right middle lobe suggestive of scarring and/or atelectasis. The visualized portions of the heart are within normal limits. There is decreased attenuation of the liver consistent with steatosis. Mild hepatomegaly. The patient is status post cholecystectomy. Normal spleen. Normal pancreas. Normal bilateral adrenal glands. Normal right kidney. Normal left kidney. The previously seen left sided ureteral stent has been removed. A 3 mm rounded calcification is seen anterior and lateral to the left distal ureter. Normal visualized stomach. Normal small intestine. There are multiple colonic diverticula consistent with diverticulosis. The appendix is visualized and appears normal. Normal abdominal aorta. Normal inferior vena cava. There is borderline retroperitoneal lymphadenopathy with enlarged nodes no greater than 10mm in the short axis diameter. Normal urinary bladder. There is absence of the uterus consistent with a prior hysterectomy. The left ovary measures 4 cm x 3.8 cm. Correlation with ultrasound is recommended for further evaluation. Normal abdominal wall. Normal osseous structures. CT/Abdomen/Pelvis without Cont IMPRESSION: Status post removal of the double-J left-sided ureteral stent catheter. There is no evidence of obstructive uropathy. Mild hepatomegaly with diffuse fatty infiltration of the liver. Electronically Signed: Natanael Morris, at 11:12 EDT , Service support ,
== END ==
PROVIDERS: Referring Provider Urology; Visit Provider Urology
DX: N20.0 Calculus of kidney (principal)
CPT/HCPCS: 74176

== ENCOUNTER 2018-12-01 19:39 | Emergency (ER) | payer MEDICAID, SELFPAY ==
[2018-07-22 12:30] VITALS: BMI 37.2
[2018-12-01 19:40] VITALS: BP 129/87; PULSE 78; RESP 16; TEMP 36.7; O2SAT 97; BMI 37.1
--- NOTE | 2018-12-01 19:50 | CT_ITS ---
STUDY: CT BRAIN WITHOUT CONTRAST REASON FOR EXAM: Female, 43 years old. Headache RADIATION DOSAGE (If Supplied By Facility): CTDIvol = ( 44.99 ) mGy, DLP = ( 812.98 ) mGycm TECHNIQUE: Transaxial CT imaging of the brain was performed without administration of intravenous contrast material. Individualized dose optimization techniques were used for this CT. COMPARISON: None FINDINGS: Normal soft tissue structures. Normal calvarium. Normal size ventricles and extra-axial spaces for the patient's age. Normal white matter tracts of the cerebral hemispheres. Normal basal ganglia and thalami. Normal brainstem. Normal cerebellum. There is no intracranial hemorrhage. There are no findings of an acute ischemic infarction. Portable retention cysts in the maxillary sinuses. CT/Brain/Head without Contrast IMPRESSION: No acute intracranial pathology of the brain. Electronically Signed: Francisco Rice DO at 20:35 EDT Tel [phone], Service support ,
--- NOTE | 2018-12-01 19:51 | ED.DCSUM_ITS ---
History of Present Illness Chief Complaint: Headache Informant: Patient Onset: Days Context: Gradual Onset Timing: Continuous Current Severity: Moderate Maximum Severity: Moderate Narrative: The patient presents to the emergency department with headache and anxiety. Patient states she has a history of migraine, but has not had one in some time. She states over the past week, she had developed progressive headache. She is had photophobia, nausea, vomiting. She states that she went to [facility]. She got migraine medication and had some improvement. However, her headache is since returned. She states she is been very anxious about it. She denies any fever. She denies any chills or sweats. She states is worse if she hangs her head down. She denies any trouble speaking or swallowing. She denies any weakness. Prior similar symptoms: Yes Recent Illness/Hospitalization: No Past Medical History - Allergies and Home Meds Allergies/Adverse Reactions: Allergies cefazolin [From [facility]] Adverse Reaction (Verified 12/01/18 19:41) Itching Primary Care Physician: NOT,DEFINED [NON-STAFF] - Prior records reviewed: Yes Past Medical History: - - Migraine Surgical History: - - Cystoscopy and ureteroscopy and laser lithotripsy with stent insertion Smoking Status: Never smoker Review of Systems General: Denies: Chills, Fever, Sweats Eyes: Denies: Visual changes - bilaterally, Diplopia ENT: Denies: Rhinorrhea, Sore throat Cardiovascular: Denies: Chest pain, Palpitations Respiratory: Denies: Dyspnea, Cough, Dyspnea on exertion Gastrointestinal: Denies: Abdominal pain, Nausea, Vomiting, Diarrhea, Melena, Hematochezia Genitourinary: Denies: Dysuria, Hematuria, Frequency Musculoskeletal: Reports: Myalgias. Denies: Back pain, Extremity Pain Skin: Denies: Rash, Wounds Neurological: Reports: Headache. Denies: Weakness, Numbness Physical Exam Vital Signs/Narrative: Vital Signs Temp Pulse Resp BP Pulse Ox 12/01/18 19:40 98.1 F 78 16 129/87 H 97 Inital Vital Signs reviewed: Yes General: Well nourished, Well developed, No Acute Distress Head: Normocephalic, Atraumatic Eyes: Perrl, EOMI ENT: Moist mucous membranes, No rhinorrhea Neck: Supple, Nontender Cardiovascular: Regular rate, Regular rhythm, No murmurs Respiratory: No distress, CTA bilaterally, Chest nontender Abdomen: Soft, Nontender, Nondistended, Normal bowel sounds Back: Nontender, Normal Inspection Extremities: Nontender, No edema Skin: Normal color, No rash Neurological: Alert, Oriented x3, Cranial nerves II-XII grossly intact, Normal Strength, Normal Sensation Psychological: Normal affect, Normal Mood Diagnostic/Tx/Re-eval Clinical Impression(s) from Imaging Studies Brain CT 12/01/18 19:50 IMPRESSION: No acute intracranial pathology of the brain. Electronically Signed: Francisco Rice DO at 20:35 EDT Tel [phone], Service support , Abnormal Lab Results 12/01/18 12/01/18 12/01/18 20:00 20:00 20:23 WBC 12.3 H RBC 4.80 Hgb 13.1 Hct 40.1 MCV 83.5 MCH 27.3 MCHC 32.7 RDW Std Deviation 41.5 RDW Coeff of Raffaele 13.5 Plt Count 337 MPV 9.3 Immature Gran % (Auto) 0.200 Neut % (Auto) 48.0 Lymph % (Auto) 39.5 [place] % (Auto) 7.0 Eos % (Auto) 5.1 H Baso % (Auto) 0.2 Absolute Neuts (auto) 5.9 Absolute Lymphs (auto) 4.85 H Nucleated RBC % 0 Differential Comment SCANNED Sodium Cancelled 139 Potassium Cancelled 3.7 Chloride Cancelled 109 H Carbon Dioxide Cancelled 24.0 Anion Gap Cancelled 6 BUN Cancelled 15 Creatinine Cancelled 0.76 Estim Creat Clear Calc Cancelled 84.12 Est GFR (MDRD) Af Amer Cancelled 107 Est GFR (MDRD) Non-Af Cancelled 89 BUN/Creatinine Ratio Cancelled 19.7 Glucose Cancelled 91 Calcium Cancelled 8.4 L - Medical Decision Making The patient presents with migraine headache. There is been gradual in onset. She is not meningitic. She is not encephalopathic. She states she has not had a headache like this in about 10 years. I did obtain a head CT which was unremarkable. The patient was treated with migraine abortive medications. On reevaluation, she was feeling markedly improved. She continues to have a benign neurologic examination. At this point, I do feel that she is safe for outpatient therapy. She was counseled on concerning symptoms and return. She will be discharged home. Impression 1. Migraine ED Disposition - Plan for ED Patient: Disposition: Home or Assisted Living Instructions: ED, Migraine (Classical) Referrals: NOT,DEFINED [NON-STAFF] -
[2018-12-01] MEDS: 0.9% Normal Saline 1,000 ML 999 ML IV (20:01)
[2018-12-01] MEDS: DiphenhydrAMINE 50 MG/ML Syringe IV (20:03)
[2018-12-01] MEDS: proCHLORPERazine 10 MG/2 ML Vial IV (20:04)
[2018-12-01 20:20] LABS: Absolute Lymphocyte Count 4.85 X10^3/uL (0.83-4.51); Absolute Neutrophil Count 5.9 X10^3/uL (2.0-7.7); Basophil# 0.03 X10^3/uL; Basophil% 0.2 % (0-1); Eosinophil# 0.62 X10^3/uL; Eosinophils% 5.1 % (0-5); Hematocrit 40.1 % (37-47); Hemoglobin 13.1 g/dL (12.0-15.0); Lymphocyte # 4.85 X10^3/ul (4.0); Lymphocyte % 39.5 % (19-41); Mean Corp Hgb Conc 32.7 g/dL (32-36); Mean Corpuscular Hgb 27.3 pg (27.0-32.0); Mean Corpuscular Volume 83.5 fL (81-99); Mean Platelet Vol. 9.3 fl (6.2-12.0); Monocyte# 0.86 X10^3/uL; NRBC Flagged by Analyzer 0 % (0-5); Neutrophil # 5.88 X10^3/uL (2.7-7.7); POSITIVE MORPHOLOGY YES; Platelet Count 337 K/mm3 (150-450); RBC Distribution Width CV 13.5 % (11.6-14.6); RBC Distribution Width SD 41.5 fl (35.1-43.9); White Blood Count 12.3 K/mm3 (4.4-11.0)
[2018-12-01 20:24] LABS: Differential Indicated SCAN CRITERIA MET
[2018-12-01] MEDS: dexAMETHasone 10 MG/ML Vial IV (20:50)
[2018-12-01 20:51] LABS: Anion Gap 6 (5-15); BUN 15 mg/dL (7-18); BUN/Creat Ratio 19.7 RATIO (10-20); Calcium,Total 8.4 mg/dL (8.5-10.1); Chloride 109 mmol/L (98-107); Creatinine, Serum 0.76 mg/dL (0.55-1.02); EST Glomerular Filtration Rate 89 mL/min (>60); Est Glom Filt Rate - Afr Amer 107 mL/min (>60); Estimated Creatinine Clearance 84.12 ml/min; Glucose 91 mg/dL (74-106); Potassium 3.7 mmol/L (3.5-5.1); Sodium Level 139 mmol/L (136-145)
[2018-12-01 20:52] LABS: Differential Comment SCANNED
[2018-12-01 21:05] VITALS: BP 121/71; PULSE 71; RESP 19; O2SAT 98
== END 2018-12-01 21:06 | disposition home or self-care (01) ==
LOC: ED 20:04
PROVIDERS: Emergency Provider Emergency Medicine; Family Provider Family Medicine; PCP Family Medicine
DX: G43.909 Migraine, unspecified, not intractable, without status migrainosus (principal); Z79.899 Other long term (current) drug therapy
CPT/HCPCS: 70450; 80048; 85025; 96361; 96374; 96375; 99284; J7030; A4216

== ENCOUNTER 2020-04-09 13:46 | Observation (INO) | payer MEDICAID, SELFPAY ==
[2020-04-09 13:12] VITALS: BMI 40.0; BMI 40.1
[2020-04-09 13:33] VITALS: BP 108/49; PULSE 74; RESP 16; TEMP 36.6; O2SAT 97
[2020-04-09] MEDS: 0.9% Saline Lock 10 ML Syringe IV ×3 (14:13→21:18)
[2020-04-09] MEDS: Dextrose 5%-Lactated Ringers 1,000 ML 125 ML IV ×2 (14:13→21:14)
[2020-04-09 14:15] LABS: Absolute Lymphocyte Count 2.15 X10^3/uL (0.83-4.51); Absolute Neutrophil Count 9.5 X10^3/uL (2.0-7.7); Basophil# 0.02 X10^3/uL; Basophil% 0.2 % (0-1); Eosinophil# 0.07 X10^3/uL; Eosinophils% 0.6 % (0-5); Hematocrit 37.9 % (37-47); Hemoglobin 12.2 g/dL (12.0-15.0); Lymphocyte # 2.15 X10^3/ul (4.0); Mean Corp Hgb Conc 32.2 g/dL (32-36); Mean Corpuscular Hgb 26.8 pg (27.0-32.0); Mean Corpuscular Volume 83.3 fL (81-99); Mean Platelet Vol. 9.4 fl (6.2-12.0); Monocyte# 0.83 X10^3/uL; Monocyte% 6.6 % (0-10); NRBC Flagged by Analyzer 0 % (0-5); Neutrophil # 9.52 X10^3/uL (2.7-7.7); Neutrophil % 75.4 % (47-70); Platelet Count 337 K/mm3 (150-450); RBC Distribution Width CV 14.2 % (11.6-14.6); RBC Distribution Width SD 43.2 fl (35.1-43.9); Red Blood Count 4.55 M/mm3 (4.2-5.4); White Blood Count 12.6 K/mm3 (4.4-11.0)
[2020-04-09 14:30] LABS: Anion Gap 7 (5-15); BUN 13 mg/dL (7-18); BUN/Creat Ratio 11.5 RATIO (10-20); Calcium,Total 8.5 mg/dL (8.5-10.1); Chloride 110 mmol/L (98-107); Creatinine, Serum 1.13 mg/dL (0.55-1.02); EST Glomerular Filtration Rate 56 mL/min (>60); Est Glom Filt Rate - Afr Amer 68 mL/min (>60); Glucose 97 mg/dL (74-106); Potassium 3.9 mmol/L (3.5-5.1); Sodium Level 141 mmol/L (136-145)
[2020-04-09 14:43] VITALS: BMI 40.1
[2020-04-09] MEDS: Ketorolac 30 MG/ML Syringe IV (16:45)
--- NOTE | 2020-04-09 17:10 | PCS.PANDOC ---
PANDEMIC DOCUMENTATION INITIATED: Date: 04/09/2020 Time: 3219
[2020-04-09 20:45] VITALS: BP 109/57; PULSE 69; RESP 20; TEMP 36.4; O2SAT 96
[2020-04-09] MEDS: Morphine 4 MG/ML Syringe 3 MG IV (21:00)
[2020-04-09] MEDS: Ciprofloxacin 400 MG/200 ML BAG 200 MG IV (21:16)
[2020-04-09] MEDS: Ondansetron 4 MG/2 ML Vial IV (21:16)
[2020-04-10] VITALS (10 sets, daily range): BP systolic 110–146; BP diastolic 51–83; PULSE 59–82; RESP 14–18; TEMP 36.3–37.1; O2SAT 92–98; BMI 40.0
[2020-04-10] MEDS: Morphine 4 MG/ML Syringe 3 MG IV ×2 (01:49→10:08)
[2020-04-10] MEDS: 0.9% Saline Lock 10 ML Syringe IV ×2 (01:57→06:16)
[2020-04-10] MEDS: Ketorolac 30 MG/ML Syringe IV ×2 (06:16→22:07)
[2020-04-10] MEDS: Dextrose 5%-Lactated Ringers 1,000 ML 125 ML IV ×3 (06:21→21:32)
--- NOTE | 2020-04-10 08:11 | PCM.HP.STD ---
Problem List (1) Renal calculus, left Status: Acute (2) Back pain Status: Acute History of Present Illness Date of Admission: 04/09/20 Chief Complaint: left flank pain The patient is a 45 year old F with history of nephrolithiasis requiring surgical intervention. She developed acute onset left flank pain Friday night associated with nausea, vomiting, and chills. No fever. No symptoms of shortness of breath or chest pain. By Friday, the pain was intolerable and she presented to the emergency room. Her pain was unable to be controlled and she was placed in observation. Past Medical History Medical History: Medical History (Last Reviewed 04/10/20 @ 08:[address] Zari Moss MD) Nephrolithiasis (Acute) N20.0 Allergies cefazolin [From [facility]] Adverse Reaction (Verified 12/01/18 19:41) Itching Home Medications: Ambulatory Orders Medication Instructions Recorded RX: Acetaminophen [Tylenol Tablet] 325 - 650 mg PO Q4H PRN PRN tablet 07/23/18 Surgical History: - - Cystoscopy and ureteroscopy and laser lithotripsy with stent insertion Smoking Status: Never smoker Review of Systems Constitutional: Reports: Chills. Denies: Fever, Weakness Eyes: Denies: Vision Change HEENT: Denies: Difficulty Swallowing, Dysphasia, Visual Changes Cardiovascular: Denies: Chest Pain, Chest Pressure Respiratory: Denies: Cough, Shortness of Breath Gastrointestinal: Reports: Abdominal Pain, Nausea, Vomiting Genitourinary: Denies: Dysuria, Frequency, Hematuria, Hesitancy Gynecological: Denies: Vaginal discharge Musculoskeletal: Denies: Muscle pain Skin: Denies: Wounds Neurological: Denies: Slurred speech, Difficulty swallowing Endocrine: Denies: Change in Body Habitus VTE Information - Inpt Only VTE Present on Admission: Yes VTE Mechan Device Prophylaxis: SCD's VTE Pharm Prophylaxis ordered?: No Reason prophylaxis not ordered:: Treatment Not Indicated - Physical Exam Vitals/I&O's: Vital Signs Temp Pulse Resp BP Pulse Ox 98.0 F 73 18 110/51 L 95 04/10/20 01:59 04/10/20 01:59 04/10/20 01:59 04/10/20 01:59 04/10/20 01:59 Oxygen Delivery Method Room Air Weight: 102.6 kg Body Mass Index (BMI) 40.0 Intake and Output for Last 24 Hours 04/08/20 04/09/20 04/10/20 23:59 23:59 23:59 Intake Total 1077.08 / 1077.08 1000 / 1000 Output Total 200 / 400 200 / 200 Balance 877.08 / 677.08 800 / 800 General: Alert, Oriented x3, Cooperative, No apparent distress HEENT: Atraumatic, Normocephalic Oral: Moist Mucosa Neck: Supple, Trachea Midline Lungs: Normal air movement Cardiovascular: Regular rate Abdomen: Soft, Non Tender, Non-Distended Extremities: No clubbing, - - SCD's in place Skin: No rashes Musculoskeletal: No Muscle Wasting Neurological: Cranial nerves II-XII grossly intact, Neuro grossly intact, Coordination normal Psych/Mental Status: Normal Affect Laboratory Results 04/09/20 14:00: WBC 12.6 H, RBC 4.55, Hgb 12.2, Hct 37.9, MCV 83.3, MCH 26.8 L, MCHC 32.2, RDW Std Deviation 43.2, RDW Coeff of Raffaele 14.2, Plt Count 337, MPV 9.4, Immature Gran % (Auto) 0.200, Neut % (Auto) 75.4 H, Lymph % (Auto) 17.0 L, [place] % (Auto) 6.6, Eos % (Auto) 0.6, Baso % (Auto) 0.2, Absolute Neuts (auto) 9.5 H, Absolute Lymphs (auto) 2.15, Nucleated RBC % 0 04/09/20 14:00: Sodium 141, Potassium 3.9, Chloride 110 H, Carbon Dioxide 24.0, Anion Gap 7, BUN 13, Creatinine 1.13 H, Estim Creat Clear Calc 53.10, Est GFR (MDRD) Af Amer 68, Est GFR (MDRD) Non-Af 56 L, BUN/Creatinine Ratio 11.5, Glucose 97, Calcium 8.5 Current Medications Hydrocodone Bitart/Acetaminophen (Hydrocodone Bitartrate/Apap 5/325 Tablet) 2 tablet PO Q8H PRN PRN PRN Reason: Pain Score 1-4 Sodium Chloride () 250 mls @ 15 mls/hr IV .[id number] PRN PRN Reason: Saline Flush Ciprofloxacin (Cipro) 400 mg in 200 mls @ 200 mls/hr IV Q12 JALEN Last Infusion: 04/09/20 22:20 Dose: Infused Documented by: Dextrose/Lactated Ringer's () 1,000 mls @ 125 mls/hr IV .Q8H JALEN Last Admin: 04/10/20 06:21 Dose: 125 mls/hr Documented by: Ketorolac Tromethamine (Ketorolac 30 Mg/Ml Syringe) 30 mg IV Q8 PRN PRN Reason: Pain Score 1-10 Stop: 04/14/20 14:01 Last Admin: 04/10/20 06:16 Dose: 30 mg Documented by: Morphine Sulfate (Morphine 4 Mg/Ml Syringe) 3 mg IV Q4H PRN PRN PRN Reason: Pain Score 1-10 Last Admin: 04/10/20 01:49 Dose: 3 mg Documented by: Ondansetron HCl (Ondansetron 4 Mg/2 Ml Vial) 4 mg IV Q8H PRN PRN PRN Reason: NAUSEA Last Admin: 04/09/20 21:16 Dose: 4 mg Documented by: Sodium Chloride (0.9% Saline Lock 10 Ml Syringe) 10 - 40 ml IV UD PRN PRN Reason: SALINE FLUSH Last Admin: 04/10/20 06:16 Dose: 10 ml Documented by: Assessment/Plan All Active Problems (Last Updated 09/03/18 @ 10:[address] Zari Moss MD) Renal calculus, left (Acute) Back pain (Acute) Nephrolithiasis (Acute) proceed with surgical intervention with cystoscopy, ureteroscopy laser lithotripsy and stent insertion on the right side. she does not do well with stents and would like to have one for as little time as possible, so we will attempt ureteroscopy today. Procedure Criteria Procedure Type: Elective - she has uncontrolled pain, nausea COVID Risk Discussion: The surgeon/proceduralist and patient have discussed in detail the risk of exposure to and/or potential harm posed by the COVID-19 virus with having a surgery/procedure at this time versus the risk of delaying the surgery/procedure. It is not possible to know either the risk of delaying the surgery or procedure or chance of getting an infection with perfect accuracy, but a joint decision was made between the patient and the surgeon/proceduralist to proceed at this time with the scheduled surgery/procedure as indicated on the consent form.
[2020-04-10] MEDS: Ciprofloxacin 400 MG/200 ML BAG 200 MG IV ×2 (09:48→21:36)
[2020-04-10] MEDS: Lactated Ringers 1,000 ML 100 ML IV (17:20)
--- NOTE | 2020-04-10 19:17 | OP.PCM_ITS ---
Problem List (1) Renal calculus, left Status: Acute (2) Back pain Status: Acute Report of Operation Date of Procedure: 04/10/20 Pre-Operative Diagnosis: Left renal calculus with hydronephrosis and uncontrolled pain Post-Operative Diagnosis: Same Surgery/Procedure Performed:: Cystoscopy, left ureteroscopy, holmium laser lithotripsy, attempted stone basket extraction, left ureteral stent insertion Type of Anesthesia:: General Specimen's removed: None Description of Procedure: The patient is a 45-year-old female with a history of stones. She developed pain to nights ago that became severe and uncontrolled. She presented to the emergency room at outside hospital. A CT scan confirmed a 9 mm left renal pelvic stone with hydronephrosis. She was transferred here for pain control and surgical intervention. She does not do well with stents. She has had several in the past. The last time she had a stent she was readmitted with pyelonephritis. She is very anxious regarding that portion of the procedure. Formed consent was obtained including a discussion of the risks of COVID-19. Patient was taken to the operating room and placed on the operating room table. Anesthesia monitored the head, neck, airway, IV access and vital signs throughout the case. Once anesthesia was appropriate ministered the patient was placed into dorsal lithotomy position was prepped and draped in usual sterile fashion. A cystourethroscopy was performed through the urethra under direct visualization. There were no abnormalities of the urinary mucosa identified. The left ureteral orifice was visualized and intubated with 2 separate 0.035 glide wires. 1 wire was left to use as a safety wire, the other was used for insertion of a ureteral reaccessed sheath followed by the flexible ureteroscope. The stone was identified in the renal pelvis. The holmium laser was used to break the stone into dust. An attempt at stone basket retrieval was performed, however only dust was identified. Each calyces was directly visualized with the help of fluoroscopy. At this time, the ureteroscope was used to remove the ureteral reaccessed sheath under direct visualization. There were no injuries identified to the ureter. After completion, a 6 [place] 24 cm double-J stent was inserted over the safety wire using fluoroscopic guidance. The stent had good curling in the renal pelvis as well as the urinary bladder. String was left intact and secured to the right inner thigh using Steri-Strips. The patient's bladder was emptied and the case was terminated. The patient tolerated the procedure without difficulty. Was awakened and taken to the recovery room in good condition. There were no complications during the procedure. Grafts/Implants Used: 6 x 24 JJ stent - Complications None - Admit VTE Documentation VTE Present on Admission: Yes VTE Mechan Device Prophylaxis: SCD's VTE Pharm Prophylaxis ordered?: No Reason prophylaxis not ordered:: Treatment Not Indicated
--- NOTE | 2020-04-10 19:22 | DCINST_ITS ---
Discharge Diet: No Restrictions Discharge Activity: Return to Normal Activity, May not drive while taking narcotic pain medications. May resume sexual activity in: 1 week Call your doctor if you observe: Fever of 101 or Higher, Inability to urinate, Calf discomfort, Uncontrolled pain Allergies/Adverse Reactions: Allergies cefazolin [From [facility]] Adverse Reaction (Verified 12/01/18 19:41) Itching Medications to take at Discharge Acetaminophen [Tylenol Tablet] 325 - 650 mg PO Q4H PRN PRN tablet 07/23/18 Ciprofloxacin [Cipro] 500 mg PO BID 3 Days #6 tab 04/11/20 Ondansetron [Zofran] 8 mg PO Q8H PRN PRN 7 Days #20 tab 04/11/20 Oxycodone HCl/Acetaminophen [Percocet 5/325] 1 tablet PO Q8H PRN PRN 7 Days #10 tablet 04/11/20 Phenazopyridine HCl [Pyridium] 200 mg PO TID PRN PRN 7 Days #30 tab 04/11/20 The following prescriptions were given: Ciprofloxacin [Cipro] 500 mg PO BID 3 Days #6 tab Transmission Status: Pending to [facility] Oxycodone HCl/Acetaminophen [Percocet 5/325] 1 tablet PO Q8H PRN PRN 7 Days #10 tablet PRN Reason: Pain Transmission Status: Sent to [facility] Phenazopyridine HCl [Pyridium] 200 mg PO TID PRN PRN 7 Days #30 tab PRN Reason: Bladder Spasms Transmission Status: Pending to [facility] Ondansetron [Zofran] 8 mg PO Q8H PRN PRN 7 Days #20 tab PRN Reason: Nausea Transmission Status: Pending to [facility] Primary Care Physician: Vincenzo Dupree MD [Primary Care Provider] - Test Results: Test results from this visit will be discussed in further detail at your follow- up appointment, if applicable. Please Follow Up With: Zari Moss MD When: call office for appointment to be seen 2-3 weeks Proposed Discharge Date: 04/11/20
[2020-04-10] MEDS: Ondansetron 4 MG/2 ML Vial IV (22:07)
[2020-04-11 01:31] VITALS: BP 111/57; PULSE 65; RESP 16; TEMP 37.1; O2SAT 94
[2020-04-11] MEDS: Dextrose 5%-Lactated Ringers 1,000 ML 125 ML IV (05:34)
[2020-04-11 05:35] VITALS: BP 116/64; PULSE 64; RESP 16; TEMP 37.1; O2SAT 93
[2020-04-11] MEDS: Ketorolac 30 MG/ML Syringe IV (06:26)
[2020-04-11 09:34] VITALS: BP 121/66; PULSE 59; RESP 16; TEMP 36.8; O2SAT 95
[2020-04-11] MEDS: Ciprofloxacin 400 MG/200 ML BAG 200 MG IV (10:06)
--- NOTE | 2020-04-11 10:56 | PCM.PN.BLA ---
Progress Note Sitting up in bed. Had bowel movement. Feeling much better than yesterday. Vitals are good, no fever. Stent removed via string without difficulty. Home after lunch if doing well. Follow up in the office in 2-3 weeks. STROKE Vital Signs/Narrative: Vital Signs Temp Pulse Resp BP Pulse Ox 04/11/20 09:34 98.2 F 59 L 16 121/66 H 95
--- NOTE | 2020-04-11 12:20 | PHA.DC.MC ---
Pharmacy Service has performed discharge medication reconciliation and counseling for this patient. The patient was counseled on the following discharge medications and changes in medications for homegoing were reviewed. 1. TYLENOL 2. CIPRO 3. ZOFRAN 4. PERCOCET 5. PYRIDIUM The Reason for Use, instructions for use, and potential side effects were reviewed for all new medications. The patient's questions regarding all of their medications were answered. The patient was able to verbally demonstrate an understanding of their discharge medications. Home Medications Acetaminophen [Tylenol Tablet] 325 - 650 mg PO Q4H PRN PRN tablet 07/23/18 Ciprofloxacin [Cipro] 500 mg PO BID 3 Days #6 tab 04/11/20 Ondansetron [Zofran] 8 mg PO Q8H PRN PRN 7 Days #20 tab 04/11/20 Oxycodone HCl/Acetaminophen [Percocet 5/325] 1 tab PO Q8H PRN PRN 7 Days #10 tab 04/11/20 Phenazopyridine HCl [Pyridium] 200 mg PO TID PRN PRN 7 Days #30 tab 04/11/20 The patient's discharge medication list was reviewed for discrepancies and discrepancies were resolved.
[2020-04-11 12:52] VITALS: BP 130/68; PULSE 67; RESP 18; TEMP 36.7; O2SAT 99
== END 2020-04-11 13:10 | disposition home or self-care (01) ==
PROVIDERS: Admitting Provider Urology; PCP Family Medicine; Visit Provider Urology
PROC: 0TJ98ZZ Inspection of Ureter, Via Natural or Artificial Opening Endoscopic (ICD-10-PCS; CPT 52352; principal; 2020-04-10 16:50)
DX: N13.2 Hydronephrosis with renal and ureteral calculous obstruction (principal)
CPT/HCPCS: 52356; 36415; 76000; 80048; 85025; 87086; 87426; 96361; 96365; 96366; 96375; 96376; 97802; 99218; J7120; A4216; C1769; C2617; G0378; G0379; J0744; J2405

== ENCOUNTER 2022-09-08 22:43 | Observation (INO) | payer MEDICAID, SELFPAY ==
[2022-09-08 22:43] VITALS: BP 151/96; PULSE 86; RESP 19; TEMP 36.2; O2SAT 100; BMI 40.3
--- NOTE | 2022-09-08 23:05 | CT_ITS ---
STUDY: CT ABDOMEN AND PELVIS WITHOUT CONTRAST REASON FOR EXAM: Female, 47 years old. left flank pain RADIATION DOSAGE (If Supplied By Facility): CTDIvol = ( 21.78 ) mGy, DLP = ( 1033.63 ) mGycm TECHNIQUE: Transaxial images were obtained from the dome of the diaphragm to the symphysis pubis without oral contrast, and without intravenous contrast. Sagittal and coronal images were reconstructed. Individualized dose optimization techniques were used for this CT. COMPARISON: 07/31/2018 FINDINGS: The visualized lung bases are unremarkable. The visualized portions of the heart are within normal limits. There is decreased attenuation of the liver consistent with steatosis. There is non-visualization of the gallbladder, which may be secondary to either contraction or a prior cholecystectomy. Normal spleen. Normal pancreas. Normal bilateral adrenal glands. Normal right kidney. 3 mm obstructing stone of the proximal left ureter with mild hydronephrosis. Normal visualized stomach. Normal small intestine. Normal colon. The appendix is visualized and appears normal. Normal abdominal aorta. Normal inferior vena cava. Normal retroperitoneum. Normal urinary bladder. Normal abdominal wall. Normal osseous structures. CT/Abdomen/Pelvis without Cont IMPRESSION: 3 mm obstructing stone in the proximal left ureter with mild hydronephrosis. Electronically Signed: Thierno Miranda MD at 23:50 EDT ,
--- NOTE | 2022-09-08 23:15 | EX.ED.DYSGE1 ---
HPI History of Present Illness Chief Complaint: Flank Pain Informant: patient Narrative Narrative: Patient is a 47-year-old female with remote history of kidney stone. She states her most recent stone was a few years ago in 2020. She reports that she noticed some blood in her urine on and states this is not associated with a menstrual cycle as she has had a partial hysterectomy. She states that there was no dysuria or urinary urgency or frequency associated with this. She states that roughly 2 hours ago she developed sudden left-sided flank pain wrapping around towards her groin. She states this pain feels similar nature to her past stone and with this comes in for evaluation. She denies any loss of bowel or bladder control or history of IV drug use. [facility] Medical History (Updated 09/09/22 @ 03:02 by Hannah Carrillo) Anxiety Depression History of stress test Kidney stones Migraines Nephrolithiasis Home Medications NK 09/08/22 [History Last Taken Unknown] Allergy/AdvReac Type Severity Reaction Status Date / Time cefazolin [From Anc] AdvReac Itching Verified 09/08/22 22:48 Surgical History (Updated 09/09/22 @ 03:02 by Hannah Carrillo) History of cholecystectomy S/P hysterectomy Social History Smoking Status: Never smoker ROS [facility] ED Constitutional Constitutional ED: Denies chills or fever(s) ENT ENT ED: Denies sore throat Cardiovascular Cardiovascular: Denies chest pain Respiratory/Chest Respiratory/Chest: Denies cough or dyspnea Gastrointestinal Gastrointestinal: Reports abdominal pain and nausea; Denies diarrhea or vomiting Genitourinary Genitourinary ED: Reports hematuria; Denies dysuria Musculoskeletal Musculoskeletal: Reports back pain; Denies myalgias Integumentary Denies rash Neurologic Neurologic: Denies headache(s) Hematologic/Lymphatic Hematologic/Lymphatic: Denies easy bleeding or easy bruising EXAM Physical Exam Const Vital Signs: 09/08/22 22:43 09/09/22 01:03 09/09/22 02:02 Temperature 97.1 F L 97.9 F Temperature Source Temporal Oral Pulse Rate 86 85 82 Respiratory Rate 19 H 18 18 Blood Pressure 151/96 H 108/70 106/53 L Blood Pressure Mean 114 82 70 Pulse Ox 100 95 94 Oxygen Delivery Method Room Air Room Air Positive well nourished and well developed General Appearance ED: well developed HEENT Reports moist mucous membranes Eyes PERRL and EOMs intact bilaterally Neck supple Resp normal respiratory effort and clear to auscultation bilaterally Cardio regular rate and regular rhythm GI non-distended GI Narrative: Pain with palpation in the left upper mid and lower abdomen without voluntary guarding or rigidity. No pulsatile mass or fluid wave noted Auscultation: normoactive bowel sounds Palpation: soft Back/Spine Back/Spine Narrative: Positive left CVA pain present Extremity normal to inspection Neuro oriented x3, CN's II-XII intact bilaterally and no sensory deficits noted Sensorium / Orientation: alert Psych mental status grossly normal Skin no rashes or lesions noted Skin Narrative: No overlying erythema or rash to suggest infection no abrasions or ecchymosis to suggest trauma MDM MDM MDM Narrative Medical decision making narrative: Patient presented to the ER hypertensive but was in pain and therefore this is to be expected and otherwise vitals are stable. History and exam is most consistent with kidney stone but as differential diagnosis includes urinary tract infection versus pyelonephritis versus acute kidney injury I did elect to perform basic blood work and a noncontrast CT. Labs showed leukocytosis but otherwise no signs of electrolyte derangement or acute kidney injury. Urine shows blood consistent with stone and there is a moderate amount of white blood cells and bacteria but there is also contamination. As patient does not have dysuria I feel this is most likely contaminant and therefore the urine will be sent for culture but I will hold off on antibiotics at this time. The patient was given a total of 3 mg of Dilaudid and 30 mg of Toradol and despite this the patient's pain level remained a 7 or 8. She is not uroseptic or showing SHANNAN but with the intractable pain and the history of needing stents or lithotripsy to remove her previous stones I did discuss the case with her urologist. She agrees at this time that with the mild to moderate hydronephrosis and intractable pain patient will require intervention and therefore she will be admitted to her service for further care. History & Record Review Discussion w/independent historian: Patient and Family Lab Data Attestation: I reviewed the patient's lab results. Labs: Laboratory Results - last 24 hr 09/08/22 09/08/22 09/09/22 23:24 23:24 00:00 WBC 14.1 H RBC 4.69 Hgb 13.0 Hct 39.8 MCV 84.9 MCH 27.7 MCHC 32.7 RDW Std Deviation 43.8 RDW Coeff of Raffaele 14.2 Plt Count 288 MPV 9.7 Immature Gran % (Auto) 1.100 H Neut % (Auto) 57.4 Lymph % (Auto) 29.7 [place] % (Auto) 7.4 Eos % (Auto) 4.0 Baso % (Auto) 0.4 Absolute Neuts (auto) 8.1 H Absolute Lymphs (auto) 4.20 Nucleated RBC % 0 Sodium 139 Potassium 3.7 Chloride 109 H Carbon Dioxide 22.0 Anion Gap 8 BUN 16 Creatinine 0.93 Estim Creat Clear Calc 65.97 Est GFR (MDRD) Af Amer 84 Est GFR (MDRD) Non-Af 69 BUN/Creatinine Ratio 17.2 Glucose 158 H Calcium 9.2 Urine Color Yellow Urine Clarity Sl. Cloudy Urine pH 5.0 Ur Specific [place] 1.025 Urine Protein 30 H Urine Glucose (UA) Normal Urine Ketones Negative Urine Occult Blood 250 H Urine Nitrite Negative Urine Bilirubin Negative Urine Urobilinogen Normal Ur Leukocyte Esterase 100 H Urine RBC > 100 SEEN Urine WBC 10-25 SEEN Ur Squamous Epith Cells 10-25 SEEN Urine Bacteria 2+ Urine Mucus 0 SEEN Radiography Diagnostic Testing: Clinical Impression(s) from Imaging Studies Abdomen/Pelvis CT 09/08/22 23:05 IMPRESSION: 3 mm obstructing stone in the proximal left ureter with mild hydronephrosis. Electronically Signed: Thierno Miranda MD at 23:50 EDT , Discharge Plan Dx/Rx/DC Orders Clinical Impression: Renal calculus, left, Renal colic, Intractable pain Disposition Disposition: Acute Care Hospital [facility] Discharge Date/Time: 09/09/22 03:01
[2022-09-08] MEDS: HYDROmorphone 1 MG/ML Syringe 2 MG IM (23:17)
[2022-09-08] MEDS: Ondansetron ODT 4 MG Tablet PO (23:22)
[2022-09-08 23:38] LABS: Absolute Neutrophil Count 8.1 X10^3/uL (2.0-7.7); Basophil# 0.05 X10^3/uL; Basophil% 0.4 % (0-1); Eosinophil# 0.57 X10^3/uL; Hematocrit 39.8 % (37-47); Lymphocyte % 29.7 % (19-41); Mean Corp Hgb Conc 32.7 g/dL (32-36); Mean Corpuscular Hgb 27.7 pg (27.0-32.0); Mean Corpuscular Volume 84.9 fL (81-99); Mean Platelet Vol. 9.7 fl (6.2-12.0); Monocyte# 1.04 X10^3/uL; Monocyte% 7.4 % (0-10); NRBC Flagged by Analyzer 0 % (0-5); Neutrophil # 8.11 X10^3/uL (2.7-7.7); Neutrophil % 57.4 % (47-70); Platelet Count 288 K/mm3 (150-450); RBC Distribution Width CV 14.2 % (11.6-14.6); RBC Distribution Width SD 43.8 fl (35.1-43.9); Red Blood Count 4.69 M/mm3 (4.2-5.4); White Blood Count 14.1 K/mm3 (4.4-11.0)
[2022-09-08 23:43] LABS: Anion Gap 8 (5-15); BUN 16 mg/dL (7-18); BUN/Creat Ratio 17.2 RATIO (10-20); Calcium,Total 9.2 mg/dL (8.5-10.1); Chloride 109 mmol/L (98-107); Creatinine, Serum 0.93 mg/dL (0.55-1.02); EST Glomerular Filtration Rate 69 mL/min (>60); Est Glom Filt Rate - Afr Amer 84 mL/min (>60); Estimated Creatinine Clearance 65.97 ml/min; Glucose 158 mg/dL (74-106); Potassium 3.7 mmol/L (3.5-5.1); Sodium Level 139 mmol/L (136-145)
[2022-09-09] VITALS (10 sets, daily range): BP systolic 100–135; BP diastolic 52–70; PULSE 47–85; RESP 16–18; TEMP 36.4–36.8; O2SAT 92–98; BMI 40.0; BMI 39.9
[2022-09-09] MEDS: 0.9% Normal Saline 1,000 ML 999 ML IV
[2022-09-09 00:07] LABS: Mucous, Urine 0 SEEN /hpf (<or=2+)
[2022-09-09 00:14] LABS: Color, Urine Yellow (Yellow); Glucose, Dipstick Normal (Normal); Ketone-Dipstick Negative (Negative); Leukocyte Esterase-Dipstick 100 /ul (Negative); Nitrite-Dipstick Negative (Negative); Occult Blood-Urine 250 /ul (Negative); Protein-Dipstick 30 mg/dl (Negative); Specific Gravity, Urine 1.025 (1.002-1.030); Urine Bilirubin Dipstick Negative (Negative); Urine Clarity Sl. Cloudy (Clear); Urine Urobilinogen Normal (Normal)
[2022-09-09 00:24] LABS: Bacteria 2+ /hpf (None Seen); Red Blood Cells-Urine > 100 SEEN /hpf (0-5); Squamous Epithelial Cells - UA 10-25 SEEN /hpf (5-10); White Blood Cells 10-25 SEEN /hpf (0-5)
[2022-09-09] MEDS: HYDROmorphone 1 MG/ML Syringe IV ×3 (01:02→10:04)
--- NOTE | 2022-09-09 01:37 | HP.PCM.HOS_ITS ---
HPI - General HPI Narrative LOUISE JAMA, is a 47 F who presents [facility] Medical History Nephrolithiasis Home Medications NK 09/08/22 [History Last Taken Unknown] Allergy/AdvReac Type Severity Reaction Status Date / Time cefazolin [From Anc] AdvReac Itching Verified 09/08/22 22:48 Social History Smoking Status: Never smoker Vital Signs Vital Signs Vital Signs: 09/08/22 22:43 09/09/22 01:03 Temperature 97.1 F L Temperature Source Temporal Pulse Rate 86 85 Respiratory Rate 19 H 18 Blood Pressure 151/96 H 108/70 Blood Pressure Mean 114 82 Pulse Ox 100 95 Oxygen Delivery Method Room Air Weight Weight: 106.549 kg Body Mass Index (BMI) 40.3 Results Lab / Micro Data Result Diagrams: 09/08/22 23:24 09/08/22 23:24 Labs: Laboratory Results - last 24 hr 09/08/22 23:24: WBC 14.1 H, RBC 4.69, Hgb 13.0, Hct 39.8, MCV 84.9, MCH 27.7, MCHC 32.7, RDW Std Deviation 43.8, RDW Coeff of Raffaele 14.2, Plt Count 288, MPV 9.7, Immature Gran % (Auto) 1.100 H, Neut % (Auto) 57.4, Lymph % (Auto) 29.7, [place] % (Auto) 7.4, Eos % (Auto) 4.0, Baso % (Auto) 0.4, Absolute Neuts (auto) 8.1 H, Absolute Lymphs (auto) 4.20, Nucleated RBC % 0 09/08/22 23:24: Sodium 139, Potassium 3.7, Chloride 109 H, Carbon Dioxide 22.0, Anion Gap 8, BUN 16, Creatinine 0.93, Estim Creat Clear Calc 65.97, Est GFR (MDRD) Af Amer 84, Est GFR (MDRD) Non-Af 69, BUN/Creatinine Ratio 17.2, Glucose 158 H, Calcium 9.2 09/09/22 00:00: Urine Color Yellow, Urine Clarity Sl. Cloudy, Urine pH 5.0, Ur Specific [place] 1.025, Urine Protein 30 H, Urine Glucose (UA) Normal, Urine Ketones Negative, Urine Occult Blood 250 H, Urine Nitrite Negative, Urine Bilirubin Negative, Urine Urobilinogen Normal, Ur Leukocyte Esterase 100 H, Urine RBC > 100 SEEN, Urine WBC 10-25 SEEN, Ur Squamous Epith Cells 10-25 SEEN, Urine Bacteria 2+, Urine Mucus 0 SEEN Radiology Impression Abdomen/Pelvis CT 09/08/22 23:05 IMPRESSION: 3 mm obstructing stone in the proximal left ureter with mild hydronephrosis. Electronically Signed: Thierno Miranda MD at 23:50 EDT ,
[2022-09-09] MEDS: Dextrose 5%-Lactated Ringers 1,000 ML 125 ML IV ×2 (04:01→12:05)
[2022-09-09] MEDS: 0.9% Saline Lock 10 ML Syringe IV (07:38)
[2022-09-09] MEDS: Ketorolac 30 MG/ML Syringe IV ×3 (07:38→16:15)
--- NOTE | 2022-09-09 11:48 | HP.PCM_ITS ---
HPI - General General Date of Admission: 09/09/22 Date of Service: 09/09/22 Chief Complaint: left flank pain HPI Narrative LOUISE JAMA, is a 47 F who presented to the emergency room last night with excruciating left flank pain. Her pain started approximately 3 days ago and was associated with gross hematuria. She increased her fluid intake and the pain continued to increase until she could no longer stand it at home yesterday. She also has been dealing with nausea but no vomiting. She denies fever or chills. She has a history of stones in the past and typically does not do well with ureteral stents and we discussed placing a 4.5 Belarusian stent today instead of the 6 Bel[place]ian. [facility] Medical History (Updated 09/09/22 @ 11:[address] Zari Moss MD) Anxiety Depression History of stress test Hydronephrosis Kidney stones Migraines Nephrolithiasis Ureteral stone Urinary tract infection Home Medications NK 09/08/22 [History Last Taken Unknown] Allergy/AdvReac Type Severity Reaction Status Date / Time cefazolin [From Ancef] AdvReac Itching Verified 09/08/22 22:48 Surgical History History of cholecystectomy S/P hysterectomy Social History Smoking Status: Never smoker ROS Constitutional Constitutional: Denies chills or fever(s) Eyes Eyes: Reports systems reviewed and no addt'l complaints, except as documented ENT HEENT: Reports systems reviewed and no addt'l complaints, except as documented Cardiovascular Cardiovascular: Reports systems reviewed and no addt'l complaints, except as documented Respiratory/Chest Respiratory/Chest: Reports systems reviewed and no addt'l complaints, except as documented Gastrointestinal Gastrointestinal: Reports anorexia, cramping and nausea; Denies vomiting Genitourinary Genitourinary: Reports abdominal discomfort, flank pain and hematuria; Denies difficulty urinating or dysuria Musculoskeletal Musculoskeletal: Reports systems reviewed and no addt'l complaints, except as documented Integumentary Integumentary: Reports systems reviewed and no addt'l complaints, except as documented Neurologic Neurologic: Reports systems reviewed and no addt'l complaints, except as documented Psychiatric Psychiatric: Reports anxiety and depression Endocrine Endocrinology: Reports systems reviewed and no addt'l complaints, except as documented Hematologic/Lymphatic Hematologic/Lymphatic: Reports systems reviewed and no addt'l complaints, except as documented Allergic/Immunologic Allergic/Immunologic: Reports systems reviewed and no addt'l complaints, except as documented Vital Signs Vital Signs Vital Signs: 09/08/22 22:43 09/09/22 01:03 09/09/22 02:02 Temperature 97.1 F L 97.9 F Temperature Source Temporal Oral Pulse Rate 86 85 82 Respiratory Rate 19 H 18 18 Blood Pressure 151/96 H 108/70 106/53 L Blood Pressure Mean 114 82 70 Blood Pressure Source Blood Pressure Position Blood Pressure Location Pulse Ox 100 95 94 Oxygen Delivery Method Room Air Room Air 09/09/22 02:59 09/09/22 04:00 09/09/22 07:32 Temperature 97.7 F L 97.5 F L Temperature Source Oral Oral Pulse Rate 61 60 Respiratory Rate 18 16 Blood Pressure 100/60 108/52 L Blood Pressure Mean 73 70 Blood Pressure Source Monitor Monitor Blood Pressure Position Semi-Fowlers Semi-Fowlers Blood Pressure Location Right Arm Right Forearm Pulse Ox 96 95 Oxygen Delivery Method Room Air Room Air Room Air 09/09/22 10:09 Temperature 97.9 F Temperature Source Oral Pulse Rate 73 Respiratory Rate 16 Blood Pressure 135/70 H Blood Pressure Mean 91 Blood Pressure Source Monitor Blood Pressure Position Semi-Fowlers Blood Pressure Location Right Forearm Pulse Ox 97 Oxygen Delivery Method Room Air Weight Weight: 105.7 kg Body Mass Index (BMI) 39.9 Physical Exam Const alert, oriented x3 and no apparent distress Constitutional Narrative: tearful about the loss of her son 2 yrs ago. She reports she has not been taking good care of herself, and she has been isolating herself. She knows she needs help. She was in therapy and she stopped it. HEENT normocephalic, external ears normal and external nose normal Eyes General Eye: normal appearance of both eyes Neck supple General: trachea midline Chest inspection of chest normal Chest: symmetrical chest wall rise Resp normal respiratory effort, normal air movement, no retractions and no use of accessory muscles Cardio regular rate GI soft to palpation, non-tender and non-distended Bladder / Kidney Exam: CVA tenderness left Back/Spine General Back: CVA tenderness left Extremity normal to inspection Skin no rashes or lesions noted, no wounds and skin turgor normal Neuro oriented x3 and CN's II-XII intact bilaterally Psych mental status grossly normal Results Lab / Micro Data Result Diagrams: 09/08/22 23:24 09/08/22 23:24 Labs: Laboratory Results - last 24 hr 09/08/22 23:24: WBC 14.1 H, RBC 4.69, Hgb 13.0, Hct 39.8, MCV 84.9, MCH 27.7, MCHC 32.7, RDW Std Deviation 43.8, RDW Coeff of Raffaele 14.2, Plt Count 288, MPV 9.7, Immature Gran % (Auto) 1.100 H, Neut % (Auto) 57.4, Lymph % (Auto) 29.7, [place] % (Auto) 7.4, Eos % (Auto) 4.0, Baso % (Auto) 0.4, Absolute Neuts (auto) 8.1 H, Absolute Lymphs (auto) 4.20, Nucleated RBC % 0 09/08/22 23:24: Sodium 139, Potassium 3.7, Chloride 109 H, Carbon Dioxide 22.0, Anion Gap 8, BUN 16, Creatinine 0.93, Estim Creat Clear Calc 65.97, Est GFR (MDRD) Af Amer 84, Est GFR (MDRD) Non-Af 69, BUN/Creatinine Ratio 17.2, Glucose 158 H, Calcium 9.2 09/09/22 00:00: Urine Color Yellow, Urine Clarity Sl. Cloudy, Urine pH 5.0, Ur Specific [place] 1.025, Urine Protein 30 H, Urine Glucose (UA) Normal, Urine Ketones Negative, Urine Occult Blood 250 H, Urine Nitrite Negative, Urine Bilirubin Negative, Urine Urobilinogen Normal, Ur Leukocyte Esterase 100 H, Urine RBC > 100 SEEN, Urine WBC 10-25 SEEN, Ur Squamous Epith Cells 10-25 SEEN, Urine Bacteria 2+, Urine Mucus 0 SEEN Radiology Impression Abdomen/Pelvis CT 09/08/22 23:05 IMPRESSION: 3 mm obstructing stone in the proximal left ureter with mild hydronephrosis. Electronically Signed: Thierno Miranda MD at 23:50 EDT , Assessment & Plan Assessment/Plan (1) Ureteral stone: (2) Hydronephrosis: (3) Intractable pain: (4) Urinary tract infection: PLAN: Plan cystoscopy with left ureteral stent antibiotics and pain control ureteroscopy in 2 weeks as outpatient needs to follow up with PCP and mental healthcare practitioners
[2022-09-09] MEDS: Ciprofloxacin 400 MG/200 ML BAG 200 MG IV (11:51)
--- NOTE | 2022-09-09 11:57 | PCM.OPRPT ---
Problems Associated Problem List Diagnoses (1) Renal calculus, left: Report of Operation Date of Procedure: 09/09/22 Pre-Operative Diagnosis: left ureteral stone with hydronephrosis Post-Operative Diagnosis: same Surgery/Procedure Performed:: cystoscopy with left ureteral stent insertion Surgeon: Zari Moss Type of Anesthesia: [facility] Description of Procedure: The patient is a 47-year-old female found to have an obstructing left proximal ureteral calculus with hydronephrosis and uncontrolled pain. Informed consent was obtained to proceed with cystoscopy and insertion of left ureteral stent with management for her urinary tract infection and bringing her back in a few weeks for management of the stone. The patient was taken to the operating room and placed in a supine position on the operating room table. She was appropriately padded and secured to the table. Anesthesia monitored the head, neck, airway, IV access and vital signs throughout the case. Once anesthesia was appropriately administered, the patient was placed into dorsolithotomy position and was prepped and draped in usual sterile fashion. The cystoscope was inserted through the urethra under direct visualization into the urinary bladder. The bladder mucosa was normal without evidence of mass, erythema or or ulceration. There was a significant amount of debris in the urine. At this time the left ureteral orifice was carefully intubated with and 0.035 Glidewire. A 4.5 Greek by 24 cm JJ stent was inserted over the wire with good positioning in the renal pelvis as well as the urinary bladder. The patient's bladder was then emptied, and the cystoscope was removed. She was awakened and taken to the recovery room in good condition. Grafts/Implants Used: 4.5 x 24cm JJ stent Complications none Admit VTE Documentation VTE Present on Admission: Yes VTE Mechan Device Prophylaxis: SCD's Reason prophylaxis not ordered:: Treatment Not Indicated
--- NOTE | 2022-09-09 11:58 | DCINST_ITS ---
Discharge Instructions Diet Discharge Diet: No restrictions Activity Discharge Activity: Return to Normal Activity and [address] (when not taking narcotics) Dressing / Incision Call your doctor if you observe: Fever of 101 or Higher, Inability to urinate and Inability to have a bowel movement Follow Up Care Please Follow Up With: Zari Moss MD When: call office for instructions Test Results: Test results from this visit will be discussed in further detail at your follow- up appointment, if applicable. Discharge Plan Admission Admit Date/Time: 09/09/22 03:36 Attending Provider: Zari Moss Primary Care Provider: Zurdo Ayala Discharge Orders/Prescriptions Prescriptions: New phenazopyridine [Pyridium] 200 mg tablet 200 mg PO TID PRN PRN (Reason: Bladder Spasms) 7 Days Qty: 30 3RF sulfamethoxazole-trimethoprim [sulfamethoxazole-trimethoprim] 800-160 mg tablet 1 tab PO BID 5 Days Qty: 10 0RF oxycodone-acetaminophen [Percocet] 5-325 mg tablet 1 tab PO Q8H PRN (Reason: pain) 5 Days Qty: 15 0RF ondansetron HCl [ondansetron HCl] 8 mg tablet 8 mg PO Q8H PRN PRN (Reason: Nausea) 7 Days Qty: 20 0RF Referrals / Follow Up: Zurdo Ayala MD [Primary Care Provider] - Disposition Disposition (needs filled in before D/C Order can be placed): Home, Self Care
--- NOTE | 2022-09-09 14:16 | PHA.DC.MC ---
Pharmacy Service has performed discharge medication reconciliation and counseling for this patient. 1. ONDANSETRON 8MG PO Q8H PRN NAUSEA 2. PERCOCET 5/325MG 1T PO Q8H PRN PAIN 3. PHENAZOPYRIDINE 200MG PO TID PRN BLADDER SPASMS 4. BACTRIM DS 1T PO BID X 5 DAYS The patient's discharge medication list was reviewed for discrepancies and discrepancies were resolved. Home Medications ondansetron HCl 8 mg tablet 8 mg PO Q8H PRN PRN Nausea 7 days #20 TABLETS 09/09/22 oxycodone-acetaminophen 5 mg-325 mg tablet (Percocet) 1 tab PO Q8H PRN pain 5 days #15 tabs 09/09/22 phenazopyridine 200 mg tablet (Pyridium) 200 mg PO TID PRN PRN Bladder Spasms 7 days #30 tabs 09/09/22 sulfamethoxazole 800 mg-trimethoprim 160 mg tablet 1 tab PO BID 5 days #10 TABLETS 09/09/22 The patient was counseled on the following discharge medications and changes in medications for homegoing were reviewed. The Reason for Use, instructions for use, and potential side effects were reviewed for all new medications. The patient's questions regarding all of their medications were answered. The patient was able to verbally demonstrate an understanding of their discharge medications. Patient counseled by pharmacy innovation assistantNicholas.
== END 2022-09-09 16:41 | disposition home or self-care (01) ==
LOC: ED 23:23 → MS3 09-09 02:33
PROVIDERS: Admitting Provider Urology; Emergency Provider Emergency Medicine; PCP Internal Medicine Infectious Disease; Visit Provider Urology
PROC: (CPT 52332; principal; 2022-09-09 11:50)
DX: N13.6 Pyonephrosis (principal); Z87.442 Personal history of urinary calculi
CPT/HCPCS: 52332; 00910; 36415; 74176; 76000; 80048; 81001; 85025; 87086; 87088; 96361; 96372; 96374; 96375; 96376; 99221; 99284; J7030; J7120; A4216; G0378; J0744; J2405

== ENCOUNTER 2022-09-26 06:03 | Day surgery (SDC) | payer MEDICAID, SELFPAY ==
[2022-09-26] VITALS (28 sets, daily range): BP systolic 76–140; BP diastolic 38–82; PULSE 70–80; RESP 14–16; TEMP 36.3–36.8; O2SAT 89–97; BMI 39.7
[2022-09-26 06:39] LABS: Internal QC Validated? YES +Cl - CLEAR BKGD
[2022-09-26 06:44] LABS: Pregnancy, Urine Negative Negative
[2022-09-26] MEDS: Lactated Ringers 1,000 ML 15 ML IV ×2 (06:45→11:01)
[2022-09-26] MEDS: Ciprofloxacin 400 MG/200 ML BAG 200 MG IV (06:45)
--- NOTE | 2022-09-26 07:31 | DCINST_ITS ---
Discharge Instructions Diet Discharge Diet: No restrictions Activity Discharge Activity: Return to Normal Activity Dressing / Incision Call your doctor if you observe: Fever of 101 or Higher, Inability to urinate and Inability to have a bowel movement Follow Up Care Please Follow Up With: Zari Moss MD When: office will call patient for follow up Test Results: Test results from this visit will be discussed in further detail at your follow- up appointment, if applicable. Discharge Plan Admission Attending Provider: Zari Moss Primary Care Provider: Zurdo Ayala Discharge Orders/Prescriptions Prescriptions: New oxycodone-acetaminophen [Percocet] 5-325 mg tablet 1 tab PO Q8H PRN (Reason: pain) 3 Days Qty: 10 0RF sulfamethoxazole-trimethoprim [sulfamethoxazole-trimethoprim] 800-160 mg tablet 1 tab PO BID 3 Days Qty: 6 0RF Referrals / Follow Up: Zurdo Ayala MD [Primary Care Provider] - Disposition Disposition (needs filled in before D/C Order can be placed): Home, Self Care
--- NOTE | 2022-09-26 07:34 | PCM.OPRPT ---
Report of Operation Date of Procedure: 09/26/22 Pre-Operative Diagnosis: left ureteral calculus Post-Operative Diagnosis: same Surgery/Procedure Performed:: cystoscopy, left ureteroscopy, left ureteral stent change Description of Surgical Findings:: The laser lithotripsy portion of the procedure was aborted secondary to nonfunctioning laser. Surgeon: Zari Moss Type of Anesthesia: General Description of Procedure: The patient is a 47-year-old female with a proximal left ureteral calculus who underwent a ureteral stent insertion approximately 2 weeks ago. She now presents for definitive management of her stone. She has significant discomfort with her stent. The patient was taken to the operating room and placed on the operating room table. Anesthesia monitored the head, neck, airway, IV access and vital signs throughout the case. Once anesthesia was appropriately administered, the patient was placed into dorsolithotomy position was prepped and draped in usual sterile fashion. At this time the cystoscope was inserted through the urethra into the urinary bladder under direct visualization. The indwelling left ureteral stent was already starting to calcify. The stent was grasped with forceps and removed with traction palpable from the stone. 2 separate 0.035 Glidewire's were passed into the renal pelvis through the ureteral orifice without difficulty. The ureteroscope was passed over the wire to the proximal ureter where the stone was visualized. A 200 ?m laser fiber was then inserted and an attempt was made to laser the stone. At this time it was discovered that the laser machine was nonfunctioning. The stone was too large for removal. A basket was used to remove some of the debris, but I feared removing the stone itself with the basket would cause ureteral injury given its size. The decision was made to leave the stone in situ. It was pushed into the renal pelvis. The safety wire was used to place a new 4.5 [place]ian 24 cm JJ stent. There was good positioning in the renal pelvis as well as the urinary bladder. The patient's bladder was then emptied and the case was terminated. She was awakened and taken to the recovery room in good condition. There were no complications during this procedure. Grafts/Implants Used: 4.5 Jordanian x 24 cm JJ stent Complications none Admit VTE Documentation VTE Present on Admission: Yes VTE Mechan Device Prophylaxis: SCD's VTE Pharm Prophylaxis ordered?: No Reason prophylaxis not ordered:: Treatment Not Indicated
--- NOTE | 2022-09-26 10:06 | SUR.PHASEI ---
AT APPROXIMATELY 0930, DR FINCH PHONE THE PATIENT'S DAUGHTER, TESSY MART, TO OBTAIN TELEPHONE PERMISSION TO TAKE THE PATIENT BACK TO SURGERY. TELEPHONE PERMISSION WAS OBTAINED BY DR FINCH AND WITNESSED BY Ramón POWELL RN.
--- NOTE | 2022-09-26 10:09 | SUR.PHASEI ---
AT APPROXIMATELY 0930, DR FINCH PHONED THE PATIENT'S DAUGHTER, TESSY MART TO OBTAIN TELEPHONE CONSENT TO TAKE THE PATIENT BACK TO SURGERY. TELEPHONE CONSENT WAS GIVEN AND WITNESSED BY Ramón POWELL RN.
--- NOTE | 2022-09-26 13:54 | PCM.OPRPT ---
Report of Operation Date of Procedure: 09/26/22 Pre-Operative Diagnosis: left renal stone Post-Operative Diagnosis: same Surgery/Procedure Performed:: left renal extracorporeal shockwave lithotripsy Surgeon: Zari Moss Type of Anesthesia: General Description of Procedure: The patient is a 47-year-old female who had an attempted laser lithotripsy earlier today with a laser that was nonfunctioning. She is now here for shockwave lithotripsy. Her left kidney was visualized with the C arm and the stone is visible in the kidney adjacent to the stent. Informed consent was obtained from the patient's daughter as she had already been given intravenous medications. Anesthesia monitored the head, neck, airway, IV access and vital signs throughout the case. Once anesthesia was appropriate ministered, the lithotripter was aligned and the stone was shocked 3000 times. The stone appeared to be well fragmented at the conclusion of the case. The patient was then awakened and taken to the recovery room in good condition. There were no complications during this procedure. Complications None Admit VTE Documentation VTE Present on Admission: Yes VTE Mechan Device Prophylaxis: SCD's VTE Pharm Prophylaxis ordered?: No Reason prophylaxis not ordered:: Treatment Not Indicated
[2022-09-26] MEDS: Ketorolac 30 MG/ML Syringe IV (16:26)
== END 2022-09-26 16:40 | disposition home or self-care (01) ==
LOC: SDC 06:06 → AC 06:07
PROVIDERS: Anesthesiology; PCP Internal Medicine Infectious Disease; Referring Provider Urology; Visit Provider Urology
PROC: 0TJ98ZZ Inspection of Ureter, Via Natural or Artificial Opening Endoscopic (ICD-10-PCS; CPT 52352; principal; 2022-09-26 07:20)
PROC: (CPT 50590; principal; 2022-09-26 12:45)
DX: N20.2 Calculus of kidney with calculus of ureter (principal); R31.0 Gross hematuria; N39.0 Urinary tract infection, site not specified; K76.0 Fatty (change of) liver, not elsewhere classified
CPT/HCPCS: 52332; 50590; 00910; 76000; 81025; J7120; J0744; J2405

== ENCOUNTER → 2022-10-02 | Outpatient (CLI) | payer MEDICAID, SELFPAY ==
--- NOTE | 2022-10-02 12:39 | RAD_ITS ---
INDICATION: KUB- URETERAL CALC. EXAMINATION/TECHNIQUE: X-RAY - XR Abdomen 1 View COMPARISON: FINDINGS: A left ureteral stent is identified. BOWEL GAS PATTERN: Non-obstructive. No bowel or stomach distention. FREE AIR: Not assessed on a single supine view. ORGANOMEGALY: Not seen. CALCIFICATIONS: No abnormal calcifications observed. LOWER CHEST: No acute pathology. BONES AND SOFT TISSUES: No acute pathology. RAD/Abdomen Single View IMPRESSION: Non-obstructive bowel gas pattern. Electronically Signed: Blue Young, at 13:11 EDT ,
== END | disposition home or self-care (01) ==
PROVIDERS: PCP Internal Medicine Infectious Disease; Referring Provider Urology; Visit Provider Urology
DX: N20.1 Calculus of ureter (principal)
CPT/HCPCS: 74018